=== PATIENT | male | born 1965 | race African-American/Black ===

== ENCOUNTER 2017-09-14 12:20 | Inpatient (IN) | payer OTHER ==
[2017-09-14 14:45] VITALS: BMI 31.2
--- NOTE | 2017-09-14 17:10 | HP ---
Admission ROS [facility] Chief Complaint: Patient presents for cocaine/PCP Rehab. Allergies/Adverse Reactions: Allergies Allergy/AdvReac Type Severity Reaction Status Date / Time No Known Allergies Allergy Verified 09/14/17 16:20 History of Present Illness: Patient presents for Rehab services for cocaine and PCP use. Was receiving treatment at [facility] and relapsed on cocaine/PCP last Thursday09/11/17. States he received inpatient rehab at [facility] years ago. Has PMH of Depression and insomnia. Exam Limitations: No Limitations - Ebola screening Have you traveled outside of the country in the last 21 days: No Have you had contact with anyone from an Ebola affected area: No Have you been sick,other than usual withdrawal symptoms: No Do you have a fever: No - Review of Systems Constitutional: No Symptoms Reported EENT: reports: Blurred Vision Respiratory: reports: No Symptoms reported Cardiac: reports: No Symptoms Reported GI: reports: Constipated : reports: No Symptoms Reported Musculoskeletal: reports: Back Pain, Muscle Pain Integumentary: reports: No Symptoms Reported Neuro: reports: No Symptoms reported Endocrine: reports: No Symptoms Reported Hematology: reports: No Symptoms Reported Psychiatric: reports: Orientated x3, Anxious, Depressed Patient History - Patient Medical History Hx Anemia: No Hx Asthma: No Hx Chronic Obstructive Pulmonary Disease (COPD): No Hx Cancer: No Hx Cardiac Disorders: No Hx Congestive Heart Failure: No Hx Hypertension: No Hx Hypercholesterolemia: No Hx Pacemaker: No HX Cerebrovascular Accident: No Hx Seizures: No Hx Dementia: No Hx Diabetes: No Hx Gastrointestinal Disorders: No Hx Liver Disease: No Hx Genitourinary Disorders: No Hx Sexually Transmitted Disorders: No Hx Renal Disease (ESRD): No Hx Thyroid Disease: No Hx Human Immunodeficiency Virus (HIV): No Hx Hepatitis C: No Hx Depression: Yes (Has history of depression, anxiety) Hx Suicide Attempt: No (Pt denies SI, suicide attempt) Hx Bipolar Disorder: No Hx Schizophrenia: No - Patient Surgical History Past Surgical History: No Hx Neurologic Surgery: No Hx Cataract Extraction: No Hx Cardiac Surgery: No Hx Lung Surgery: No Hx Breast Surgery: No Hx Breast Biopsy: No Hx Abdominal Surgery: No Hx Appendectomy: No Hx Cholecystectomy: No Hx Genitourinary Surgery: No Hx Orthopedic Surgery: No Hx Hysterectomy: No Anesthesia Reaction: No - PPD History Previous Implant?: Yes Documented Results: Negative w/o proof Implanted On Prior [facility] Admission?: No PPD to be Administered?: Yes - Smoking Cessation Smoking history: Current every day smoker Have you smoked in the past 12 months: Yes Hx Chewing Tobacco Use: No Initiated information on smoking cessation: Yes 'Breaking Loose' booklet given: 09/14/17 - Substances Abused Cocaine Route: Inhalation Frequency: 1-2 times per week Age of first use: 20 Date of Last Use: 09/11/17 Family Disease History - Family Disease History Family Disease History: Diabetes: Mother (Alive), Other: Father (Heroin abuse, , AIDS) Admission Physical Exam [facility] - Vital Signs Vital Signs: Vital Signs - 24 hr 09/14/17 14:41 Temperature 96.7 F L Pulse Rate 70 Respiratory 20 Rate Blood Pressure 143/73 - Physical General Appearance: Yes: Appropriately Dressed, Sweating, Anxious HEENTM: Yes: EOMI, Hearing grossly Normal, Normocephalic, NAVID Respiratory: Yes: Within Normal Limits, Chest Non-Tender, Lungs Clear, Normal Breath Sounds, No Respiratory Distress Neck: Yes: Within Normal Limits, No masses,lesions,Nodules, Supple Breast: Yes: Breast Exam Deferred Cardiology: Yes: Within Normal Limits, Regular Rhythm, Regular Rate, S1, S2 Abdominal: Yes: Normal Bowel Sounds, Non Tender, Soft Genitourinary: Yes: Within Normal Limits Back: Yes: Muscle Spasm Musculoskeletal: Yes: full range of Motion, Gait Steady, Back pain, Muscle Pain Extremities: Yes: Within Normal Limits, Normal Range of Motion, Non-Tender Neurological: Yes: Within Normal Limits, Fully Oriented, Alert Integumentary: Yes: Within Normal Limits, Normal Color, Warm, Moist - Diagnostic (1) Cocaine dependence Current Visit: Yes Status: Acute (2) Nicotine dependence Current Visit: Yes Status: Acute (3) PCP dependence Current Visit: Yes Status: Acute (4) Depressed mood Current Visit: Yes Status: Acute (5) Elevated blood pressure reading in office with diagnosis of hypertension Current Visit: Yes Status: Acute BHS Breath Alcohol Content Breath Alcohol Content: 0 Urine Drug Screen - Results Drug Screen Negative: No Urine Drug Screen Results: MANPREET-Cocaine, PCP-Phencyclidine Inpatient Rehab Admission - Initial Determination Are CD services needed?: Yes Free of communicable disease: Yes Not in need of hospitalization: Yes - Rehab Admission Criteria Previous failed treatment: Yes Poor recovery environment: Yes Comorbidities: Yes Lacks judgement: Yes Patient is meeting Inpatient Rehab admission criteria:: Yes
[2017-09-14] MEDS ORDERED: ACETAMINOPHEN 325 MG TABLET (FP) PO PRN (17:30)
[2017-09-14] MEDS ORDERED: guaiFENesin/D-METHORPHAN HB 10 ML UNIT-DOSE CUPS PO PRN (17:30)
[2017-09-14] MEDS ORDERED: NICOTINE POLACRILEX 2 MG GUM BC PRN (17:30)
[2017-09-14] MEDS ORDERED: MAGNESIUM CITRATE 300 ML BOTTLE PO PRN (17:30)
[2017-09-14] MEDS ORDERED: MAG HYDROX/AL HYDROX/SIMETH 30 ML UNIT-DOSE CUP PO PRN (17:30)
[2017-09-14] MEDS ORDERED: MAGNESIUM HYDROX 2400MG/30ML ORAL SUSPENSION 30 ML CUP PO PRN (17:30)
[2017-09-14] MEDS ORDERED: IBUPROFEN 400 MG TABLET (FP) PO PRN (17:30)
[2017-09-14] MEDS ORDERED: P-EPHED 60MG/TRIPROLIDI 2.5MG TABLET PO PRN (17:30)
[2017-09-14] MEDS ORDERED: hydrOXYzine PAMOATE 50 MG CAPSULE (FP) PO PRN (17:30)
[2017-09-14] MEDS ORDERED: MENTHOL/PHENOL 1 EACH UD MM PRN (17:30)
[2017-09-14] MEDS ORDERED: LOPERAMIDE HCL 2 MG CAPSULE PO PRN (17:30)
[2017-09-14] MEDS ORDERED: TUBERCULIN PPD 5 TU/0.1ML VIAL ID ONE (20:22)
--- NOTE | 2017-09-14 20:22 | PN ---
[facility] Progress Note Note: Psychiatry Attending's magnetic resonance imaging coordinator's note : Called to enter orders for zoloft and seroquel. New admission : Herman Carrion 52 y/o male from [facility]. Diagnosis : Cocaine/Phencyclidine Dependence Major Depressive Disorder Chart reviewed.Medications reconciled. Pharmacy claims of 08/21/17 + 09/08/17 : seen. At [facility] # [id number].Confirmed doses of both medications. Spoke to patient via telephone. Side effects/benefits discussed. Ordered : seroquel 100 mg po hs zoloft 50 mg po daily. Patient agrees.
[2017-09-14] MEDS: THIAMINE HCL 100 MG TABLET (FP) PO SCH (21:26)
[2017-09-14] MEDS: QUEtiapine FUMARATE 100 MG TABLET (FP) PO SCH (21:26)
[2017-09-14] MEDS ORDERED: MELATONIN 5 MG TABLETS PO PRN (22:00)
[2017-09-15 02:02] LABS: URINE APPEARANCE SLCLOUDY; URINE BILIRUBIN NEGATIVE (<2.0 mg/dL); URINE BLOOD NEGATIVE (NEGATIVE); URINE COLOR AMBER; URINE GLUCOSE (UA) NEGATIVE (NEGATIVE); URINE KETONE NEGATIVE (NEGATIVE); URINE LEUK ESTERASE NEGATIVE (NEGATIVE); URINE NITRITE NEGATIVE (NEGATIVE); URINE PROTEIN NEGATIVE (NEGATIVE); URINE UROBILINOGEN 4.0 E.U/dl mg/dL (0.2-1.0)
[2017-09-15] MEDS: PRENATAL VITAMINS W/ FOLIC ACID TABLET (FP) PO SCH (10:02)
[2017-09-15] MEDS: SERTRALINE HCL 50 MG TABLET (FP) PO SCH (10:02)
[2017-09-15] MEDS: NICOTINE 21 MG/24 HOURS TOPICAL PATCH TD SCH (10:02)
--- NOTE | 2017-09-15 14:22 | HP ---
Psychiatrist Admission - Data Date of interview: 09/15/17 Admission source: [facility] Identifying data: This is the second 5N inpatient rehabilitation admission for this 52 year old single faher of 5, unemployed and domiciled. Medical History: Hypertension, smokes 5-7 cigarettes a day. Psychiatric History: Patient reports history of depressionand anxiety, reports has been in treatment since the loss of his 24 year old daughter. He is under the care of [facility] [place], states sees the psychiatrist and currently on Seroquel 100 mg po hs and Zoloft 50 mg po daily, reports no history of psychiatric hospitalizations. Physical/Sexual Abuse/Trauma History: Patient denies history of sexual, physical and verbal abuse. Vital Signs: Vital Signs - 24 hr 09/14/17 09/15/17 09/15/17 14:41 01:29 03:30 Temperature 96.7 F L Pulse Rate 70 Respiratory 20 18 18 Rate Blood Pressure 143/73 09/15/17 06:43 Temperature 98.6 F Pulse Rate 76 Respiratory 17 Rate Blood Pressure 148/83 Allergies/Adverse Reactions: Allergies Allergy/AdvReac Type Severity Reaction Status Date / Time No Known Allergies Allergy Verified 09/14/17 16:20 Date of last physical exam: 09/14/17 Concur with the findings of this exam: Yes - Substance Abuse/Tx History Hx Alcohol Use: No Hx Substance Use: Yes (PCP on weekends) Substance Use Type: Cocaine (on weekends) Hx Substance Use Treatment: Yes ([facility], 5.) Mental Status Exam - Mental Status Exam Alert and Oriented to: Time, Place, Person Cognitive Function: Good Patient Appearance: Well Groomed Mood: Depressed, Sad, Anxious Affect: Appropriate, Mood Congruent, Constricted Patient Behavior: Cooperative Speech Pattern: Clear, Appropriate Voice Loudness: Normal Thought Process: Intact, Goal Oriented Thought Disorder: Not Present Hallucinations: Denies Suicidal Ideation: Denies Homicidal Ideation: Denies Insight/Judgement: Fair Sleep: Fair Appetite: Fair Muscle strength/Tone: Normal Gait/Station: Normal Psychiatric Findings - Problem List ([place] 1, 2,3) (1) MDD (major depressive disorder) Current Visit: Yes Status: Acute (2) Cocaine dependence Current Visit: Yes Status: Acute (3) Nicotine dependence Current Visit: Yes Status: Acute (4) PCP dependence Current Visit: Yes Status: Acute - Initial Treatment Plan Initial Treatment Plan: will continue Seroquel and Zoloft, monitor progress as needed.
--- NOTE | 2017-09-15 16:44 | EKG ---
Test Reason : Blood Pressure : / mmHG Vent. Rate : 073 BPM Atrial Rate : 073 BPM P-R Int : 140 ms QRS Dur : 090 ms QT Int : 392 ms P-R-T Axes : 063 043 -38 degrees QTc Int : 431 ms SINUS RHYTHM WITH PREMATURE ATRIAL COMPLEXES T WAVE ABNORMALITY, CONSIDER INFEROLATERAL ISCHEMIA ABNORMAL ECG WHEN COMPARED WITH ECG OF 14-SEP-2017 22:20, PREMATURE ATRIAL COMPLEXES ARE NOW PRESENT Confirmed by MD Rosemarie, Kelechi ([id number]) on 09/15/2017 4:44:23 PM Referred By: Confirmed By:Kelechi Houston MD
--- NOTE | 2017-09-15 16:46 | EKG ---
Test Reason : Blood Pressure : / mmHG Vent. Rate : 074 BPM Atrial Rate : 074 BPM P-R Int : 142 ms QRS Dur : 092 ms QT Int : 402 ms P-R-T Axes : 072 057 -47 degrees QTc Int : 446 ms NORMAL SINUS RHYTHM T WAVE ABNORMALITY, CONSIDER INFEROLATERAL ISCHEMIA ABNORMAL ECG NO PREVIOUS ECGS AVAILABLE Confirmed by MD Houston Edward ([id number]) on 09/15/2017 4:46:31 PM Referred By: Confirmed By:Kelechi Houston MD
[2017-09-15 17:00] LABS: HEMATOCRIT 35.6 % (35.4-49); HEMOGLOBIN 12.5 GM/dL (11.7-16.9); MCH 30.3 pg (25.7-33.7); MCHC 35.2 g/dl (32.0-35.9); MEAN CELL VOLUME 86.1 fl (80-96); MEAN PLT VOLUME 8.6 fl (7.5-11.1); PLATELET COUNT 233 K/MM3 (134-434); RBC 4.14 M/mm3 (4.00-5.60); RDW 19.6 % (11.9-15.9); WHITE BLOOD COUNT 8.1 K/mm3 (4.0-10.0)
[2017-09-15 17:05] LABS: ALBUMIN 3.2 g/dl (3.4-5.0); ANION GAP 10 (8-16); BLOOD UREA NITROGEN 13 mg/dL (7-18); CALCIUM 8.3 mg/dL (8.5-10.1); CHLORIDE 109 mmol/L (98-107); CO2 28 mmol/L (21-32); CREATININE 1.3 mg/dL (0.7-1.3); GLUCOSE,RANDOM 138 mg/dL (74-106); POTASSIUM 3.5 mmol/L (3.5-5.1); SGOT/AST 30 U/L (15-37); SGPT/ALT 37 U/L (12-78); SODIUM 147 mmol/L (136-145); TOT PROT 5.9 g/dl (6.4-8.2)
[2017-09-15 17:06] LABS: ALK PHOS 71 U/L (45-117)
[2017-09-15] MEDS: THIAMINE HCL 100 MG TABLET (FP) PO SCH (21:13)
[2017-09-15] MEDS: QUEtiapine FUMARATE 100 MG TABLET (FP) PO SCH (21:13)
[2017-09-16] MEDS: PRENATAL VITAMINS W/ FOLIC ACID TABLET (FP) PO SCH (10:00)
[2017-09-16] MEDS: SERTRALINE HCL 50 MG TABLET (FP) PO SCH (10:01)
[2017-09-16] MEDS: NICOTINE 21 MG/24 HOURS TOPICAL PATCH TD SCH (10:01)
[2017-09-16] MEDS: THIAMINE HCL 100 MG TABLET (FP) PO SCH (21:13)
[2017-09-16] MEDS: QUEtiapine FUMARATE 100 MG TABLET (FP) PO SCH (21:13)
[2017-09-17] MEDS ORDERED: DOCUSATE SODIUM 100 MG CAPSULE (FP) PO PRN (09:14)
--- NOTE | 2017-09-17 09:18 | PN ---
[facility] Progress Note Note: Patient c/o constipation Vital Signs Temperature 97.3 F L 09/17/17 07:17 Pulse Rate 64 09/17/17 07:17 Respiratory Rate 18 09/17/17 07:17 Blood Pressure 135/98 09/17/17 07:17 O2 Sat by Pulse Oximetry (%) Laboratory Tests 09/14/17 09/15/17 09/15/17 22:00 08:30 08:30 WBC 8.1 RBC 4.14 Hgb 12.5 Hct 35.6 MCV 86.1 MCH 30.3 MCHC 35.2 RDW 19.6 H Plt Count 233 MPV 8.6 Sodium 147 H Potassium 3.5 Chloride 109 H Carbon Dioxide 28 Anion Gap 10 BUN 13 Creatinine 1.3 Creat Clearance w eGFR 57.97 POC Glucometer Random Glucose 138 H Calcium 8.3 L Total Bilirubin 1.0 AST 30 ALT 37 Alkaline Phosphatase 71 Total Protein 5.9 L Albumin 3.2 L Urine Color Radha Urine Appearance Slcloudy Urine pH 5.0 Ur Specific Bath 1.029 Urine Protein Negative Urine Glucose (UA) Negative Urine Ketones Negative Urine Blood Negative Urine Nitrite Negative Urine Bilirubin Negative Urine Urobilinogen 4.0 e.u/dl Ur Leukocyte Esterase Negative RPR Titer 09/15/17 09/17/17 08:30 06:33 WBC RBC Hgb Hct MCV MCH MCHC RDW Plt Count MPV Sodium Potassium Chloride Carbon Dioxide Anion Gap BUN Creatinine Creat Clearance w eGFR POC Glucometer 102 Random Glucose Calcium Total Bilirubin AST ALT Alkaline Phosphatase Total Protein Albumin Urine Color Urine Appearance Urine pH Ur Specific Bath Urine Protein Urine Glucose (UA) Urine Ketones Urine Blood Urine Nitrite Urine Bilirubin Urine Urobilinogen Ur Leukocyte Esterase RPR Titer Nonreactive Subj: patient c/o constipation and hard stools. Denies fever, N/V/D. Obj: Gen: alert and oriented x 3. In NAD. GI: soft, NT, no distenstion. Ext: Full ROM, no deformities or edema noted A/P Constipation Increase oral fluids Add colace 100mg BID Continue to monitor clinically
[2017-09-17] MEDS: PRENATAL VITAMINS W/ FOLIC ACID TABLET (FP) PO SCH (10:01)
[2017-09-17] MEDS: SERTRALINE HCL 50 MG TABLET (FP) PO SCH (10:01)
[2017-09-17] MEDS: NICOTINE 21 MG/24 HOURS TOPICAL PATCH TD SCH (10:01)
[2017-09-17] MEDS: THIAMINE HCL 100 MG TABLET (FP) PO SCH (21:40)
[2017-09-17] MEDS: QUEtiapine FUMARATE 100 MG TABLET (FP) PO SCH (21:40)
[2017-09-18] MEDS: NICOTINE 21 MG/24 HOURS TOPICAL PATCH TD SCH (09:42)
[2017-09-18] MEDS: PRENATAL VITAMINS W/ FOLIC ACID TABLET (FP) PO SCH (09:42)
[2017-09-18] MEDS: SERTRALINE HCL 50 MG TABLET (FP) PO SCH (09:42)
[2017-09-18] MEDS: QUEtiapine FUMARATE 100 MG TABLET (FP) PO SCH (21:10)
[2017-09-18] MEDS: THIAMINE HCL 100 MG TABLET (FP) PO SCH (21:10)
[2017-09-19] MEDS: PRENATAL VITAMINS W/ FOLIC ACID TABLET (FP) PO SCH (10:08)
[2017-09-19] MEDS: NICOTINE 21 MG/24 HOURS TOPICAL PATCH TD SCH (10:08)
[2017-09-19] MEDS: SERTRALINE HCL 50 MG TABLET (FP) PO SCH (10:08)
[2017-09-19] MEDS: THIAMINE HCL 100 MG TABLET (FP) PO SCH (21:21)
[2017-09-19] MEDS: QUEtiapine FUMARATE 100 MG TABLET (FP) PO SCH (21:21)
[2017-09-20] MEDS: SERTRALINE HCL 50 MG TABLET (FP) PO SCH (10:18)
[2017-09-20] MEDS: PRENATAL VITAMINS W/ FOLIC ACID TABLET (FP) PO SCH (10:19)
[2017-09-20] MEDS: NICOTINE 21 MG/24 HOURS TOPICAL PATCH TD SCH (10:19)
[2017-09-20] MEDS: QUEtiapine FUMARATE 100 MG TABLET (FP) PO SCH (21:10)
[2017-09-20] MEDS: THIAMINE HCL 100 MG TABLET (FP) PO SCH (21:10)
[2017-09-21] MEDS: PRENATAL VITAMINS W/ FOLIC ACID TABLET (FP) PO SCH (10:04)
[2017-09-21] MEDS: NICOTINE 21 MG/24 HOURS TOPICAL PATCH TD SCH (10:04)
[2017-09-21] MEDS: SERTRALINE HCL 50 MG TABLET (FP) PO SCH (10:04)
[2017-09-21] MEDS: QUEtiapine FUMARATE 100 MG TABLET (FP) PO SCH (21:29)
[2017-09-21] MEDS: THIAMINE HCL 100 MG TABLET (FP) PO SCH (21:29)
[2017-09-22] MEDS: NICOTINE 21 MG/24 HOURS TOPICAL PATCH TD SCH (09:57)
[2017-09-22] MEDS: PRENATAL VITAMINS W/ FOLIC ACID TABLET (FP) PO SCH (09:57)
[2017-09-22] MEDS: SERTRALINE HCL 50 MG TABLET (FP) PO SCH (09:57)
[2017-09-22] MEDS: QUEtiapine FUMARATE 100 MG TABLET (FP) PO SCH (21:13)
[2017-09-22] MEDS: THIAMINE HCL 100 MG TABLET (FP) PO SCH (21:13)
[2017-09-23] MEDS: PRENATAL VITAMINS W/ FOLIC ACID TABLET (FP) PO SCH (10:05)
[2017-09-23] MEDS: SERTRALINE HCL 50 MG TABLET (FP) PO SCH (10:05)
[2017-09-23] MEDS: NICOTINE 21 MG/24 HOURS TOPICAL PATCH TD SCH (10:05)
[2017-09-23] MEDS: QUEtiapine FUMARATE 100 MG TABLET (FP) PO SCH (21:20)
[2017-09-23] MEDS: THIAMINE HCL 100 MG TABLET (FP) PO SCH (21:20)
[2017-09-24] MEDS: PRENATAL VITAMINS W/ FOLIC ACID TABLET (FP) PO SCH (09:58)
[2017-09-24] MEDS: SERTRALINE HCL 50 MG TABLET (FP) PO SCH (09:58)
[2017-09-24] MEDS: NICOTINE 21 MG/24 HOURS TOPICAL PATCH TD SCH (09:58)
[2017-09-24] MEDS: THIAMINE HCL 100 MG TABLET (FP) PO SCH (21:22)
[2017-09-24] MEDS: QUEtiapine FUMARATE 100 MG TABLET (FP) PO SCH (21:22)
[2017-09-25] MEDS: PRENATAL VITAMINS W/ FOLIC ACID TABLET (FP) PO SCH (10:18)
[2017-09-25] MEDS: NICOTINE 21 MG/24 HOURS TOPICAL PATCH TD SCH (10:18)
[2017-09-25] MEDS: SERTRALINE HCL 50 MG TABLET (FP) PO SCH (10:18)
[2017-09-25] MEDS: QUEtiapine FUMARATE 100 MG TABLET (FP) PO SCH (21:13)
[2017-09-25] MEDS: THIAMINE HCL 100 MG TABLET (FP) PO SCH (21:13)
[2017-09-26] MEDS: PRENATAL VITAMINS W/ FOLIC ACID TABLET (FP) PO SCH (09:43)
[2017-09-26] MEDS: SERTRALINE HCL 50 MG TABLET (FP) PO SCH (09:43)
[2017-09-26] MEDS: NICOTINE 21 MG/24 HOURS TOPICAL PATCH TD SCH (09:44)
[2017-09-26] MEDS: THIAMINE HCL 100 MG TABLET (FP) PO SCH (21:15)
[2017-09-26] MEDS: QUEtiapine FUMARATE 100 MG TABLET (FP) PO SCH (21:15)
[2017-09-27] MEDS: NICOTINE 21 MG/24 HOURS TOPICAL PATCH TD SCH (09:40)
[2017-09-27] MEDS: PRENATAL VITAMINS W/ FOLIC ACID TABLET (FP) PO SCH (09:40)
[2017-09-27] MEDS: SERTRALINE HCL 50 MG TABLET (FP) PO SCH (09:40)
--- NOTE | 2017-09-27 15:17 | PN ---
Psychiatric Progress Note Vital Signs: Vital Signs Period Temp Pulse Resp BP Sys/Lo Pulse Ox Last 24 Hr 97.9 F 64 18-18 133/83 Date of Session: 09/27/17 Chief Complaint:: Discharge Note HPI: Patient addressing Cocaine and Phencyclidine Dependence comorbid with Nicotine Dependence and MDD Current Medications: Active Medications Generic Name Dose Route Start Last Admin Trade Name Freq PRN Reason Stop Dose Admin Acetaminophen 650 mg 09/14/17 17:30 Tylenol - PO Q4H PRN FEVER Al Hydroxide/Mg Hydroxide 30 ml 09/14/17 17:30 Mylanta Oral Suspension - PO Q6H PRN DYSPEPSIA Docusate Sodium 100 mg 09/17/17 09:14 09/26/17 09:43 Colace - PO 100 mg BID PRN Administration CONSTIPATION Eucalyptus/Menthol/Phenol/Sorbitol 1 each 09/14/17 17:30 Cepastat Lozenge - MM Q4H PRN SORE THROAT Guaifenesin 10 ml 09/14/17 17:30 Robitussin Dm - PO Q6H PRN COUGH Hydroxyzine Pamoate 50 mg 09/14/17 17:30 Vistaril - PO Q4H PRN AGITATION Ibuprofen 400 mg 09/14/17 17:30 Motrin - PO Q6H PRN Pain level 4-6 Loperamide HCl 4 mg 09/14/17 17:30 Imodium - PO Q6H PRN DIARRHEA Magnesium Citrate 300 ml 09/14/17 17:30 Citroma - PO Q48H PRN CONSTIPATION Magnesium Hydroxide 30 ml 09/14/17 17:30 Milk Of Magnesia - PO DAILY PRN CONSTIPATION Melatonin 5 mg 09/14/17 22:00 Melatonin PO HS PRN INSOMNIA Nicotine 21 mg 09/15/17 10:00 09/27/17 09:40 Nicoderm Patch - TD 21 mg DAILY CALEB Administration Nicotine Polacrilex 2 mg 09/14/17 17:30 Nicorette Gum - BC Q2H PRN NICOTINE REPLACEMENT RX Multivit/Folic Acid/Iron 1 tab 09/15/17 10:00 09/27/17 09:40 Vitamins (Sjr) - PO 1 tab DAILY CALEB Administration Pseudoephedrine/Triprolidine 1 combo 09/14/17 17:30 Actifed - PO TID PRN NASAL CONGESTION Quetiapine Fumarate 100 mg 09/14/17 22:00 09/26/17 21:15 Seroquel - PO 100 mg HS CALEB Administration Sertraline HCl 50 mg 09/15/17 10:00 09/27/17 09:40 Zoloft - PO 50 mg DAILY CALEB Administration Thiamine HCl 100 mg 09/14/17 22:00 09/26/17 21:15 Vitamin B1 - PO 100 mg HS CALEB Administration Current Side Effect: No Lab tests ordered: Yes Lab tests reviewed: Yes Provider note:: Patient will complete this program on 09/28/17. He has met his treatment goals and will continue to address his issues in outpatient treatment at [facility]. Told travel writer that from his participation in this program, he has learned to believe in himself, his high power and to make meetings as well as having a sponsor. He responded well to Seroquel 100 mg po HS and Zoloft 50 mg po daily. Scripts for 30 days supply of these medications will be electronically transmitted to [facility] pharmacy at [address] [place] [address]. He is stable for discharge on 09/28/17 Total face to face time:: 35 Psychiatric Treatment Plan - Problem List (1) Cocaine dependence Current Visit: Yes (2) Phencyclidine dependence Current Visit: Yes (3) Phencyclidine dependence Current Visit: Yes (4) Nicotine dependence Current Visit: Yes (5) MDD (major depressive disorder) Current Visit: Yes Initial treatment plan: Patient will be discharged tomorrow and referred to [facility] for outpatient treatment
[2017-09-27] MEDS: THIAMINE HCL 100 MG TABLET (FP) PO SCH (21:38)
[2017-09-27] MEDS: QUEtiapine FUMARATE 100 MG TABLET (FP) PO SCH (21:38)
[2017-09-28 07:03] VITALS: BP 140/88; PULSE 77; TEMP 98
--- NOTE | 2017-09-28 08:16 | HP ---
Psychiatrist Admission - Data Date of interview: 09/28/17 Admission source: Discharge Note Vital Signs: Vital Signs - 24 hr 09/28/17 09/28/17 09/28/17 00:30 03:30 07:03 Temperature 98.0 F Pulse Rate 77 Respiratory 18 18 18 Rate Blood Pressure 140/88 Allergies/Adverse Reactions: Allergies Allergy/AdvReac Type Severity Reaction Status Date / Time No Known Allergies Allergy Verified 09/14/17 16:20 Psychiatric Findings - Problem List ([place] 1, 2,3) (1) Cocaine dependence Current Visit: Yes Status: Acute (2) Phencyclidine dependence Current Visit: Yes Status: Acute (3) Phencyclidine dependence Current Visit: Yes Status: Acute (4) Nicotine dependence Current Visit: Yes Status: Acute (5) MDD (major depressive disorder) Current Visit: Yes Status: Acute
--- NOTE | 2017-09-28 08:16 | PN ---
Psychiatric Progress Note Vital Signs: Vital Signs Period Temp Pulse Resp BP Sys/Lo Pulse Ox Last 24 Hr 98.0 F 77 18-18 140/88 Date of Session: 09/28/17 Chief Complaint:: Discharge Note HPI: Patient addressing Cocaine and Phencyclidine Dependence comorbid with Nicotine Dependence and MDD Current Medications: Active Medications Generic Name Dose Route Start Last Admin Trade Name Freq PRN Reason Stop Dose Admin Acetaminophen 650 mg 09/14/17 17:30 Tylenol - PO Q4H PRN FEVER Al Hydroxide/Mg Hydroxide 30 ml 09/14/17 17:30 Mylanta Oral Suspension - PO Q6H PRN DYSPEPSIA Docusate Sodium 100 mg 09/17/17 09:14 09/26/17 09:43 Colace - PO 100 mg BID PRN Administration CONSTIPATION Eucalyptus/Menthol/Phenol/Sorbitol 1 each 09/14/17 17:30 Cepastat Lozenge - MM Q4H PRN SORE THROAT Guaifenesin 10 ml 09/14/17 17:30 Robitussin Dm - PO Q6H PRN COUGH Hydroxyzine Pamoate 50 mg 09/14/17 17:30 Vistaril - PO Q4H PRN AGITATION Ibuprofen 400 mg 09/14/17 17:30 Motrin - PO Q6H PRN Pain level 4-6 Loperamide HCl 4 mg 09/14/17 17:30 Imodium - PO Q6H PRN DIARRHEA Magnesium Citrate 300 ml 09/14/17 17:30 Citroma - PO Q48H PRN CONSTIPATION Magnesium Hydroxide 30 ml 09/14/17 17:30 Milk Of Magnesia - PO DAILY PRN CONSTIPATION Melatonin 5 mg 09/14/17 22:00 Melatonin PO HS PRN INSOMNIA Nicotine 21 mg 09/15/17 10:00 09/27/17 09:40 Nicoderm Patch - TD 21 mg DAILY CALEB Administration Nicotine Polacrilex 2 mg 09/14/17 17:30 Nicorette Gum - BC Q2H PRN NICOTINE REPLACEMENT RX Multivit/Folic Acid/Iron 1 tab 09/15/17 10:00 09/27/17 09:40 Vitamins (Sjr) - PO 1 tab DAILY CALEB Administration Pseudoephedrine/Triprolidine 1 combo 09/14/17 17:30 Actifed - PO TID PRN NASAL CONGESTION Quetiapine Fumarate 100 mg 09/14/17 22:00 09/27/17 21:38 Seroquel - PO 100 mg HS CALEB Administration Sertraline HCl 50 mg 09/15/17 10:00 09/27/17 09:40 Zoloft - PO 50 mg DAILY CALEB Administration Thiamine HCl 100 mg 09/14/17 22:00 09/27/17 21:38 Vitamin B1 - PO 100 mg HS CALEB Administration Current Side Effect: No Lab tests ordered: Yes Lab tests reviewed: Yes Provider note:: Patient has completed this program today. He has met his treatment goals and will continue to address his issues in outpatient treatment at [facility]. Told typewriter aligner that from his participation in this program, he has learned to believe in himself, his high power and to make meetings as well as having a sponsor. He responded well to Seroquel 100 mg po HS and Zoloft 50 mg po daily. Scripts for 30 days supply of these medications will be electronically transmitted to [facility] pharmacy at [address] [place] [address]. He is stable for discharge today Total face to face time:: 35 Mental Status Exam - Mental Status Exam Alert and Oriented to: Time, Place, Person Cognitive Function: Fair Patient Appearance: Well Groomed Mood: Hopeful, Euthymic Affect: Appropriate Patient Behavior: Cooperative Speech Pattern: Clear Voice Loudness: Normal Thought Process: Intact, Goal Oriented Thought Disorder: Not Present Hallucinations: Denies Suicidal Ideation: Denies Homicidal Ideation: Denies Insight/Judgement: Fair Sleep: Fair Appetite: Good Muscle strength/Tone: Normal Gait/Station: Normal Psychiatric Treatment Plan - Problem List (1) Cocaine dependence Current Visit: Yes (2) Phencyclidine dependence Current Visit: Yes (3) Phencyclidine dependence Current Visit: Yes (4) Nicotine dependence Current Visit: Yes (5) MDD (major depressive disorder) Current Visit: Yes Initial treatment plan: Patient will be discharged tomorrow and referred to [facility] for outpatient treatment
[2017-09-28] MEDS: NICOTINE 21 MG/24 HOURS TOPICAL PATCH TD SCH (10:01)
[2017-09-28] MEDS: SERTRALINE HCL 50 MG TABLET (FP) PO SCH (10:01)
[2017-09-28] MEDS: PRENATAL VITAMINS W/ FOLIC ACID TABLET (FP) PO SCH (10:01)
== END 2017-09-28 11:00 | disposition home or self-care (01) | DRG 772 ==
LOC: YASAS 12:20 → Y5N 16:50
PROVIDERS: ADMIT Psychiatry & Neurology Psychiatry; ATTEND Psychiatry & Neurology Psychiatry
PROC: HZ42ZZZ Group Counseling for Substance Abuse Treatment, Cognitive-Behavioral (ICD-10-PCS; principal; 2017-09-14)
DX: F14.20 Cocaine dependence, uncomplicated (principal); F16.20 Hallucinogen dependence, uncomplicated; F17.210 Nicotine dependence, cigarettes, uncomplicated; F33.9 Major depressive disorder, recurrent, unspecified; F32.9 Major depressive disorder, single episode, unspecified; F41.9 Anxiety disorder, unspecified; I10 Essential (primary) hypertension
CPT/HCPCS: 36415; 80053; 81003; 82962; 85027; 86593; 93005; 93010

== ENCOUNTER 2020-08-07 13:22 | Inpatient (IN) | payer OTHER ==
[2020-08-07 15:38] VITALS: BMI 30.5
[2020-08-07] MEDS ORDERED: NALOXONE HCL 0.4 MG/ML VIAL IM PRN (16:36)
[2020-08-07] MEDS ORDERED: METHADONE HCL 10 MG TABLET (FOR DETOX USE ONLY) PO ONE (16:36)
[2020-08-07] MEDS ORDERED: MAGNESIUM HYDROX 2400MG/30ML ORAL SUSPENSION 30 ML CUP PO PRN (16:36)
[2020-08-07] MEDS ORDERED: ONDANSETRON *ODT* 4 MG TABLET SL PRN (16:36)
[2020-08-07] MEDS ORDERED: ACETAMINOPHEN 325 MG TABLET (FP) PO PRN (16:36)
[2020-08-07] MEDS ORDERED: MAGNESIUM CITRATE 300 ML BOTTLE PO PRN (16:36)
[2020-08-07] MEDS ORDERED: MENTHOL/PHENOL 1 EACH UD MM PRN (16:36)
[2020-08-07] MEDS ORDERED: BISMUTH SUBSALICYLATE 524 MG/30 ML UD PO PRN (16:36)
[2020-08-07] MEDS ORDERED: METHOCARBAMOL 500 MG TABLET PO PRN (16:36)
[2020-08-07] MEDS ORDERED: MAG HYDROX/AL HYDROX/SIMETH 30 ML UNIT-DOSE CUP PO PRN (16:36)
[2020-08-07] MEDS ORDERED: IBUPROFEN 400 MG TABLET (FP) PO PRN (16:36)
[2020-08-07] MEDS ORDERED: cloNIDine HCL 0.1 MG TABLET PO PRN (16:36)
[2020-08-07] MEDS: PRENATAL VITAMINS W/ FOLIC ACID TABLET (FP) PO SCH (18:22)
[2020-08-07] MEDS: hydrOXYzine PAMOATE 25 MG CAPSULE (FP) PO SCH ×2 (18:22→22:33)
[2020-08-07] MEDS: THIAMINE HCL 100 MG TABLET (FP) PO SCH (22:33)
[2020-08-07] MEDS: MELATONIN 5 MG TABLETS PO SCH (22:33)
[2020-08-08] MEDS: hydrOXYzine PAMOATE 25 MG CAPSULE (FP) PO SCH ×2 (06:22→10:25)
[2020-08-08] MEDS ORDERED: METHADONE HCL 5 MG TABLET (FOR DETOX USE ONLY) ONE (09:07)
[2020-08-08] MEDS ORDERED: METHADONE HCL 10 MG TABLET (FOR DETOX USE ONLY) ONE (09:07)
[2020-08-08] MEDS ORDERED: METHADONE (DETOX) 20 MG, METHADONE (DETOX) 5 MG PO ONE (10:00)
[2020-08-08] MEDS: PRENATAL VITAMINS W/ FOLIC ACID TABLET (FP) PO SCH (10:25)
[2020-08-08 11:20] LABS: POTASSIUM 4.1 mmol/L (3.5-5.1)
[2020-08-08] MEDS ORDERED: hydrOXYzine PAMOATE 25 MG CAPSULE (FP) PO PRN (11:21)
[2020-08-08 11:25] LABS: HEMATOCRIT 32.7 % (35.4-49); MCH 30.3 pg (25.7-33.7); MCHC 36.7 g/dl (32.0-35.9); MEAN CELL VOLUME 82.5 fl (80-96); MEAN PLT VOLUME 8.5 fl (7.5-11.1); PLATELET COUNT 240 K/MM3 (134-434); RBC 3.97 M/mm3 (4.00-5.60); RDW 18.6 % (11.9-15.9)
[2020-08-08 11:27] LABS: ALBUMIN 3.4 g/dl (3.4-5.0); BLOOD UREA NITROGEN 11.4 mg/dL (7-18); CALCIUM 8.8 mg/dL (8.5-10.1)
[2020-08-08 11:34] LABS: BILIRUBIN,TOTAL 1.6 mg/dL (0.2-1)
[2020-08-08 11:36] LABS: TOT PROT 6.4 g/dl (6.4-8.2)
[2020-08-08 12:18] LABS: HIV INTERPRETATION NEGATIVE (NEGATIVE)
[2020-08-08] MEDS: MELATONIN 5 MG TABLETS PO SCH (21:54)
[2020-08-08] MEDS: THIAMINE HCL 100 MG TABLET (FP) PO SCH (21:54)
[2020-08-08] MEDS: MIRTAZAPINE 15 MG TABLET (FP) PO SCH (21:54)
[2020-08-09] MEDS: PRENATAL VITAMINS W/ FOLIC ACID TABLET (FP) PO SCH (09:35)
[2020-08-09] MEDS: SERTRALINE HCL 50 MG TABLET (FP) PO SCH (09:35)
[2020-08-09] MEDS ORDERED: METHADONE HCL 10 MG TABLET (FOR DETOX USE ONLY) PO ONE (10:00)
[2020-08-09] MEDS: MELATONIN 5 MG TABLETS PO SCH (22:09)
[2020-08-09] MEDS: MIRTAZAPINE 15 MG TABLET (FP) PO SCH (22:09)
[2020-08-09] MEDS: THIAMINE HCL 100 MG TABLET (FP) PO SCH (22:09)
[2020-08-10] MEDS ORDERED: METHADONE HCL 10 MG TABLET (FOR DETOX USE ONLY) ONE (09:40)
[2020-08-10] MEDS ORDERED: METHADONE HCL 5 MG TABLET (FOR DETOX USE ONLY) ONE (09:40)
[2020-08-10] MEDS ORDERED: METHADONE (DETOX) 10 MG, METHADONE (DETOX) 5 MG PO ONE (10:00)
[2020-08-10] MEDS: SERTRALINE HCL 50 MG TABLET (FP) PO SCH (10:01)
[2020-08-10] MEDS: PRENATAL VITAMINS W/ FOLIC ACID TABLET (FP) PO SCH (10:01)
[2020-08-10 10:58] LABS: POTASSIUM 4.2 mmol/L (3.5-5.1)
[2020-08-10 11:01] LABS: ALBUMIN 3.6 g/dl (3.4-5.0); BLOOD UREA NITROGEN 12.6 mg/dL (7-18)
[2020-08-10 11:04] LABS: CREATININE 1.1 mg/dL (0.55-1.3)
[2020-08-10 11:05] LABS: BILIRUBIN,TOTAL 1.8 mg/dL (0.2-1)
[2020-08-10 11:06] LABS: TOT PROT 6.6 g/dl (6.4-8.2)
[2020-08-10] MEDS: THIAMINE HCL 100 MG TABLET (FP) PO SCH (22:08)
[2020-08-10] MEDS: MELATONIN 5 MG TABLETS PO SCH (22:08)
[2020-08-10] MEDS: MIRTAZAPINE 15 MG TABLET (FP) PO SCH (22:08)
[2020-08-11] MEDS: PRENATAL VITAMINS W/ FOLIC ACID TABLET (FP) PO SCH (09:31)
[2020-08-11] MEDS: SERTRALINE HCL 50 MG TABLET (FP) PO SCH (09:31)
[2020-08-11] MEDS ORDERED: METHADONE HCL 10 MG TABLET (FOR DETOX USE ONLY) PO ONE (10:00)
[2020-08-11] MEDS: MELATONIN 5 MG TABLETS PO SCH (22:31)
[2020-08-11] MEDS: MIRTAZAPINE 15 MG TABLET (FP) PO SCH (22:32)
[2020-08-11] MEDS: THIAMINE HCL 100 MG TABLET (FP) PO SCH (22:32)
[2020-08-12] MEDS ORDERED: METHADONE HCL 5 MG TABLET (FOR DETOX USE ONLY) PO ONE (06:00)
[2020-08-12] MEDS: SERTRALINE HCL 50 MG TABLET (FP) PO SCH (10:34)
[2020-08-12] MEDS: PRENATAL VITAMINS W/ FOLIC ACID TABLET (FP) PO SCH (10:34)
[2020-08-12 14:20] VITALS: BP 132/68; PULSE 73; TEMP 96.4
== END 2020-08-12 15:55 | disposition other institution (70) | DRG 773 ==
LOC: YASAS 13:22 → Y3N 15:34
PROVIDERS: ADMIT Allergy & Immunology; ATTEND Allergy & Immunology
PROC: HZ2ZZZZ Detoxification Services for Substance Abuse Treatment (ICD-10-PCS; principal; 2020-08-07)
DX: F11.23 Opioid dependence with withdrawal (principal); F10.20 Alcohol dependence, uncomplicated; F16.20 Hallucinogen dependence, uncomplicated; F17.210 Nicotine dependence, cigarettes, uncomplicated; F19.24 Other psychoactive substance dependence with psychoactive substance-induced mood disorder; F32.9 Major depressive disorder, single episode, unspecified; G47.00 Insomnia, unspecified; I10 Essential (primary) hypertension; M54.5 Low back pain; G89.29 Other chronic pain; Z91.19 Patient's noncompliance with other medical treatment and regimen
CPT/HCPCS: 36415; 80053; 85027; 86780; 87389; 93005; 93010; C9803; J0735; U0003

== ENCOUNTER 2020-08-12 14:53 | Inpatient (IN) | payer OTHER ==
[2020-08-12] MEDS ORDERED: guaiFENesin 200 MG/10 ML 10 ML UNIT-DOSE CUPS PO PRN (15:43)
[2020-08-12] MEDS ORDERED: LOPERAMIDE HCL 2 MG CAPSULE PO PRN (15:43)
[2020-08-12] MEDS ORDERED: MAGNESIUM CITRATE 300 ML BOTTLE PO PRN (15:43)
[2020-08-12] MEDS ORDERED: MENTHOL/PHENOL 1 EACH UD MM PRN (15:43)
[2020-08-12] MEDS ORDERED: MAG HYDROX/AL HYDROX/SIMETH 30 ML UNIT-DOSE CUP PO PRN (15:43)
[2020-08-12] MEDS ORDERED: NICOTINE POLACRILEX 2 MG GUM BUC PRN (15:43)
[2020-08-12] MEDS ORDERED: MAGNESIUM HYDROX 2400MG/30ML ORAL SUSPENSION 30 ML CUP PO PRN (15:43)
[2020-08-12] MEDS ORDERED: IBUPROFEN 400 MG TABLET (FP) PO PRN (15:43)
[2020-08-12] MEDS ORDERED: ACETAMINOPHEN 325 MG TABLET (FP) PO PRN (15:43)
[2020-08-12] MEDS ORDERED: P-EPHED 60MG/TRIPROLIDI 2.5MG TABLET PO PRN (15:43)
[2020-08-12] MEDS: hydrOXYzine PAMOATE 25 MG CAPSULE (FP) PO SCH ×2 (18:47→21:37)
[2020-08-12] MEDS: THIAMINE HCL 100 MG TABLET (FP) PO SCH (21:37)
[2020-08-12] MEDS: MELATONIN 5 MG TABLETS PO SCH (21:37)
[2020-08-13] MEDS: hydrOXYzine PAMOATE 25 MG CAPSULE (FP) PO SCH ×3 (07:03→13:17)
[2020-08-13] MEDS: PRENATAL VITAMINS W/ FOLIC ACID TABLET (FP) PO SCH (09:55)
[2020-08-13] MEDS: NICOTINE 7 MG/24 HOURS TOPICAL PATCH TD SCH (09:55)
[2020-08-13] MEDS: hydrOXYzine PAMOATE 25 MG CAPSULE (FP) PO PRN (21:27)
[2020-08-13] MEDS: THIAMINE HCL 100 MG TABLET (FP) PO SCH (21:27)
[2020-08-13] MEDS: MELATONIN 5 MG TABLETS PO SCH (21:28)
[2020-08-14 06:40] VITALS: TEMP 97.7
[2020-08-14] MEDS: NICOTINE 7 MG/24 HOURS TOPICAL PATCH TD SCH (09:56)
[2020-08-14] MEDS: PRENATAL VITAMINS W/ FOLIC ACID TABLET (FP) PO SCH (09:56)
[2020-08-14] MEDS: MELATONIN 5 MG TABLETS PO SCH (21:25)
[2020-08-14] MEDS: THIAMINE HCL 100 MG TABLET (FP) PO SCH (21:25)
[2020-08-14] MEDS: hydrOXYzine PAMOATE 25 MG CAPSULE (FP) PO PRN (21:25)
[2020-08-14] MEDS ORDERED: MIRTAZAPINE 15 MG TABLET (FP) PO SCH (22:00)
[2020-08-15 06:43] VITALS: BP 130/84; PULSE 63
[2020-08-15] MEDS ORDERED: SERTRALINE HCL 50 MG TABLET (FP) PO SCH (10:00)
[2020-08-15] MEDS: PRENATAL VITAMINS W/ FOLIC ACID TABLET (FP) PO SCH (10:10)
[2020-08-15] MEDS: NICOTINE 7 MG/24 HOURS TOPICAL PATCH TD SCH (10:10)
== END 2020-08-15 11:05 | disposition left against medical advice (07) | DRG 772 ==
LOC: YASAS 14:53 → Y5N 14:54
PROVIDERS: ADMIT Allergy & Immunology; ATTEND Allergy & Immunology
PROC: HZ42ZZZ Group Counseling for Substance Abuse Treatment, Cognitive-Behavioral (ICD-10-PCS; principal; 2020-08-12)
DX: F11.20 Opioid dependence, uncomplicated (principal); F10.20 Alcohol dependence, uncomplicated; F14.20 Cocaine dependence, uncomplicated; F16.20 Hallucinogen dependence, uncomplicated; F17.210 Nicotine dependence, cigarettes, uncomplicated; F32.9 Major depressive disorder, single episode, unspecified; G47.00 Insomnia, unspecified; I10 Essential (primary) hypertension; Z56.0 Unemployment, unspecified; F91.8 Other conduct disorders; Z91.19 Patient's noncompliance with other medical treatment and regimen

== ENCOUNTER 2021-04-01 10:19 | Inpatient (IN) | payer OTHER ==
[2021-04-01 11:16] VITALS: BMI 30.7
[2021-04-01] MEDS ORDERED: MAGNESIUM HYDROX 2400MG/30ML ORAL SUSPENSION 30 ML CUP PO PRN (11:34)
[2021-04-01] MEDS ORDERED: BISMUTH SUBSALICYLATE 524 MG/30 ML PO PRN (11:34)
[2021-04-01] MEDS ORDERED: cloNIDine HCL 0.1 MG TABLET PO PRN (11:34)
[2021-04-01] MEDS ORDERED: methaDONE HCL 10 MG TABLET (FOR DETOX USE ONLY) PO ONE (11:34)
[2021-04-01] MEDS ORDERED: ACETAMINOPHEN 325 MG TABLET (FP) PO PRN ×2 (11:34)
[2021-04-01] MEDS ORDERED: IBUPROFEN 400 MG TABLET (FP) PO PRN (11:34)
[2021-04-01] MEDS ORDERED: ONDANSETRON *ODT* 4 MG TABLET SL PRN (11:34)
[2021-04-01] MEDS ORDERED: MAG HYDROX/AL HYDROX/SIMETH 30 ML UNIT-DOSE CUP PO PRN (11:34)
[2021-04-01] MEDS ORDERED: MAGNESIUM CITRATE 300 ML BOTTLE PO PRN (11:34)
[2021-04-01] MEDS ORDERED: NICOTINE 10 MG CARTRIDGE (INHALER) IH PRN (11:34)
[2021-04-01] MEDS: PRENATAL VITAMINS W/ FOLIC ACID TABLET (FP) PO SCH (13:32)
[2021-04-01 14:25] LABS: HEMOGLOBIN 13.1 GM/dL (11.7-16.9); MCH 30.1 pg (25.7-33.7); MCHC 36.4 g/dl (32.0-35.9); MEAN CELL VOLUME 82.7 fl (80-96); MEAN PLT VOLUME 7.8 fl (7.5-11.1); PLATELET COUNT 305 10^3/uL (134-434); RBC 4.35 M/mm3 (4.00-5.60); WHITE BLOOD COUNT 11.9 K/mm3 (4.0-10.0)
[2021-04-01 14:26] LABS: ALBUMIN 3.9 g/dl (3.4-5.0); CALCIUM 9.2 mg/dL (8.5-10.1)
[2021-04-01 14:30] LABS: CREATININE 1.2 mg/dL (0.55-1.3)
[2021-04-01 14:31] LABS: BILIRUBIN,TOTAL 1.7 mg/dL (0.2-1); BLOOD UREA NITROGEN 13.9 mg/dL (7-18); TOT PROT 7.4 g/dl (6.4-8.2)
[2021-04-01] MEDS: hydrOXYzine PAMOATE 25 MG CAPSULE (FP) PO SCH ×3 (15:04→22:11)
[2021-04-01 15:17] LABS: HIV INTERPRETATION NEGATIVE (NEGATIVE)
[2021-04-01] MEDS: MELATONIN 5 MG TABLETS PO SCH (22:11)
[2021-04-01] MEDS: THIAMINE HCL 100 MG TABLET (FP) PO SCH (22:12)
[2021-04-02] MEDS: hydrOXYzine PAMOATE 25 MG CAPSULE (FP) PO SCH ×5 (05:31→22:12)
[2021-04-02] MEDS ORDERED: methaDONE HCL 10 MG TABLET (FOR DETOX USE ONLY) ONE (09:52)
[2021-04-02] MEDS: amLODIPine BESYLATE 10 MG TABLET (FP) PO SCH (10:21)
[2021-04-02] MEDS: PRENATAL VITAMINS W/ FOLIC ACID TABLET (FP) PO SCH (10:21)
[2021-04-02] MEDS: SERTRALINE HCL 50 MG TABLET (FP) PO SCH (10:21)
[2021-04-02] MEDS: THIAMINE HCL 100 MG TABLET (FP) PO SCH (22:12)
[2021-04-02] MEDS: METHOCARBAMOL 500 MG TABLET PO PRN (22:12)
[2021-04-02] MEDS: MELATONIN 5 MG TABLETS PO SCH (22:12)
[2021-04-03] MEDS: hydrOXYzine PAMOATE 25 MG CAPSULE (FP) PO SCH ×5 (06:06→22:56)
[2021-04-03] MEDS ORDERED: methaDONE HCL 10 MG TABLET (FOR DETOX USE ONLY) PO ONE (10:00)
[2021-04-03] MEDS: PRENATAL VITAMINS W/ FOLIC ACID TABLET (FP) PO SCH (10:34)
[2021-04-03] MEDS: SERTRALINE HCL 50 MG TABLET (FP) PO SCH (10:34)
[2021-04-03] MEDS: amLODIPine BESYLATE 10 MG TABLET (FP) PO SCH (10:34)
[2021-04-03 11:55] LABS: HEMATOCRIT 37.6 % (35.4-49); HEMOGLOBIN 13.7 GM/dL (11.7-16.9); MCH 30.4 pg (25.7-33.7); MCHC 36.4 g/dl (32.0-35.9); MEAN CELL VOLUME 83.4 fl (80-96); MEAN PLT VOLUME 8.3 fl (7.5-11.1); PLATELET COUNT 289 10^3/uL (134-434); RBC 4.51 M/mm3 (4.00-5.60); RDW 18.4 % (11.9-15.9); WHITE BLOOD COUNT 7.7 K/mm3 (4.0-10.0)
[2021-04-03] MEDS ORDERED: P-EPHED 60MG/TRIPROLIDI 2.5MG TABLET PO PRN (13:34)
[2021-04-03] MEDS: MELATONIN 5 MG TABLETS PO SCH (22:08)
[2021-04-03] MEDS: THIAMINE HCL 100 MG TABLET (FP) PO SCH (22:08)
[2021-04-04] MEDS: hydrOXYzine PAMOATE 25 MG CAPSULE (FP) PO SCH ×6 (06:01→21:40)
[2021-04-04] MEDS ORDERED: methaDONE HCL 10 MG TABLET (FOR DETOX USE ONLY) ONE (09:45)
[2021-04-04] MEDS: METHOCARBAMOL 500 MG TABLET PO PRN (10:14)
[2021-04-04] MEDS: PRENATAL VITAMINS W/ FOLIC ACID TABLET (FP) PO SCH (10:15)
[2021-04-04] MEDS: SERTRALINE HCL 50 MG TABLET (FP) PO SCH (10:15)
[2021-04-04] MEDS: amLODIPine BESYLATE 10 MG TABLET (FP) PO SCH (10:15)
[2021-04-04] MEDS: MELATONIN 5 MG TABLETS PO SCH (21:40)
[2021-04-04] MEDS: THIAMINE HCL 100 MG TABLET (FP) PO SCH (21:40)
[2021-04-05] MEDS: hydrOXYzine PAMOATE 25 MG CAPSULE (FP) PO SCH ×5 (06:58→22:16)
[2021-04-05] MEDS ORDERED: methaDONE HCL 10 MG TABLET (FOR DETOX USE ONLY) PO ONE (10:00)
[2021-04-05] MEDS: amLODIPine BESYLATE 10 MG TABLET (FP) PO SCH (10:06)
[2021-04-05] MEDS: PRENATAL VITAMINS W/ FOLIC ACID TABLET (FP) PO SCH (10:06)
[2021-04-05] MEDS: SERTRALINE HCL 50 MG TABLET (FP) PO SCH (10:06)
[2021-04-05] MEDS: THIAMINE HCL 100 MG TABLET (FP) PO SCH (22:16)
[2021-04-05] MEDS: MELATONIN 5 MG TABLETS PO SCH (22:16)
[2021-04-05] MEDS: METHOCARBAMOL 500 MG TABLET PO PRN (22:17)
[2021-04-06] MEDS: hydrOXYzine PAMOATE 25 MG CAPSULE (FP) PO SCH ×2 (06:42→10:05)
[2021-04-06 09:55] VITALS: BP 125/84; PULSE 93; TEMP 96.8
[2021-04-06] MEDS: amLODIPine BESYLATE 10 MG TABLET (FP) PO SCH (10:05)
[2021-04-06] MEDS: PRENATAL VITAMINS W/ FOLIC ACID TABLET (FP) PO SCH (10:05)
[2021-04-06] MEDS: SERTRALINE HCL 50 MG TABLET (FP) PO SCH (10:05)
== END 2021-04-06 11:14 | disposition home or self-care (01) | DRG 773 ==
LOC: YASAS 10:19 → Y3N 11:44
PROVIDERS: ADMIT Allergy & Immunology; ATTEND Allergy & Immunology
PROC: HZ2ZZZZ Detoxification Services for Substance Abuse Treatment (ICD-10-PCS; principal; 2021-04-01)
DX: F11.23 Opioid dependence with withdrawal (principal); F10.230 Alcohol dependence with withdrawal, uncomplicated; F14.20 Cocaine dependence, uncomplicated; F16.20 Hallucinogen dependence, uncomplicated; F17.213 Nicotine dependence, cigarettes, with withdrawal; F41.9 Anxiety disorder, unspecified; F32.9 Major depressive disorder, single episode, unspecified; I10 Essential (primary) hypertension
CPT/HCPCS: 36415; 80053; 82247; 85027; 86780; 87389; 93005; 93010; C9803; J0735; U0003; U0005

== ENCOUNTER 2021-06-23 14:16 | Inpatient (IN) | payer OTHER ==
[2021-06-23] MEDS ORDERED: MAGNESIUM HYDROX 2400MG/30ML ORAL SUSPENSION 30 ML CUP PO PRN (23:00)
[2021-06-23] MEDS ORDERED: BISMUTH SUBSALICYLATE 524 MG/30 ML PO PRN (23:00)
[2021-06-23] MEDS ORDERED: IBUPROFEN 400 MG TABLET (FP) PO PRN (23:00)
[2021-06-23] MEDS ORDERED: MAGNESIUM CITRATE 300 ML BOTTLE PO PRN (23:00)
[2021-06-23] MEDS ORDERED: NICOTINE POLACRILEX 2 MG GUM BUC PRN (23:00)
[2021-06-23] MEDS ORDERED: ONDANSETRON *ODT* 4 MG TABLET SL PRN (23:00)
[2021-06-23] MEDS ORDERED: MENTHOL/PHENOL 1 EACH UD MM PRN (23:00)
[2021-06-23] MEDS ORDERED: MAG HYDROX/AL HYDROX/SIMETH 30 ML UNIT-DOSE CUP PO PRN (23:00)
[2021-06-23] MEDS ORDERED: ACETAMINOPHEN 325 MG TABLET (FP) PO PRN ×2 (23:00)
[2021-06-23 23:54] VITALS: BMI 30.9
[2021-06-24] MEDS: PRENATAL VITAMINS W/ FOLIC ACID TABLET (FP) PO SCH (10:24)
[2021-06-24] MEDS: METHOCARBAMOL 500 MG TABLET PO PRN ×2 (10:24→22:14)
[2021-06-24] MEDS: NICOTINE 14 MG/24 HOURS TOPICAL PATCH TD SCH (11:02)
[2021-06-24 12:29] LABS: HEMATOCRIT 34.1 % (35.4-49); MCH 29.2 pg (25.7-33.7); MCHC 35.2 g/dl (32.0-35.9); MEAN CELL VOLUME 82.8 fl (80-96); MEAN PLT VOLUME 8.4 fl (7.5-11.1); PLATELET COUNT 263 10^3/uL (134-434); RBC 4.12 M/mm3 (4.00-5.60); RDW 19.6 % (11.9-15.9); WHITE BLOOD COUNT 8.2 K/mm3 (4.0-10.0)
[2021-06-24 12:56] LABS: CALCIUM 8.6 mg/dL (8.5-10.1)
[2021-06-24 12:57] LABS: ALBUMIN 3.5 g/dl (3.4-5.0); BLOOD UREA NITROGEN 13.5 mg/dL (7-18)
[2021-06-24 13:00] LABS: CREATININE 1.2 mg/dL (0.55-1.3)
[2021-06-24 13:02] LABS: BILIRUBIN,TOTAL 1.1 mg/dL (0.2-1); TOT PROT 6.5 g/dl (6.4-8.2)
[2021-06-24] MEDS: amLODIPine BESYLATE 10 MG TABLET (FP) PO SCH (19:28)
[2021-06-24] MEDS ORDERED: MELATONIN 5 MG TABLETS PO SCH (22:00)
[2021-06-24] MEDS ORDERED: THIAMINE HCL 100 MG TABLET (FP) PO SCH (22:00)
[2021-06-25 00:12] VITALS: TEMP 97.8
[2021-06-25] MEDS ORDERED: cloNIDine HCL 0.1 MG TABLET PO ONE (07:30)
[2021-06-25 09:25] VITALS: BP 155/93; PULSE 102
[2021-06-25] MEDS: PRENATAL VITAMINS W/ FOLIC ACID TABLET (FP) PO SCH (10:37)
[2021-06-25] MEDS: NICOTINE 14 MG/24 HOURS TOPICAL PATCH TD SCH (10:38)
[2021-06-25] MEDS: amLODIPine BESYLATE 10 MG TABLET (FP) PO SCH (10:39)
== END 2021-06-25 10:57 | disposition other institution (70) | DRG 773 ==
LOC: YASAS 14:16 → Y3N 23:18 → UNDOADMIN 23:18
PROVIDERS: ADMIT Allergy & Immunology; ATTEND Allergy & Immunology
PROC: HZ2ZZZZ Detoxification Services for Substance Abuse Treatment (ICD-10-PCS; principal; 2021-06-23)
DX: F11.23 Opioid dependence with withdrawal (principal); F14.20 Cocaine dependence, uncomplicated; F16.20 Hallucinogen dependence, uncomplicated; F17.210 Nicotine dependence, cigarettes, uncomplicated; F41.9 Anxiety disorder, unspecified; F32.A Depression, unspecified; G47.00 Insomnia, unspecified; I10 Essential (primary) hypertension; M54.50 Low back pain, unspecified; G89.29 Other chronic pain; Z56.0 Unemployment, unspecified; Z91.19 Patient's noncompliance with other medical treatment and regimen
CPT/HCPCS: 36415; 80053; 85027; 86780; 93005; 93010; C9803; J0735; U0003; U0005

== ENCOUNTER 2021-09-06 10:33 | Inpatient (IN) | payer OTHER ==
[2021-09-06] MEDS ORDERED: BISMUTH SUBSALICYLATE 524 MG/30 ML PO PRN (11:59)
[2021-09-06] MEDS ORDERED: ACETAMINOPHEN 325 MG TABLET (FP) PO PRN ×2 (11:59)
[2021-09-06] MEDS ORDERED: LOPERAMIDE HCL 2 MG CAPSULE PO PRN (11:59)
[2021-09-06] MEDS ORDERED: IBUPROFEN 400 MG TABLET (FP) PO PRN (11:59)
[2021-09-06] MEDS ORDERED: NICOTINE 10 MG CARTRIDGE (INHALER) IH PRN (11:59)
[2021-09-06] MEDS ORDERED: MAG HYDROX/AL HYDROX/SIMETH 30 ML UNIT-DOSE CUP PO PRN (11:59)
[2021-09-06] MEDS ORDERED: methaDONE HCL 10 MG TABLET (FOR DETOX USE ONLY) PO ONE ×2 (11:59→22:00)
[2021-09-06] MEDS ORDERED: ONDANSETRON *ODT* 4 MG TABLET SL PRN (11:59)
[2021-09-06] MEDS ORDERED: MENTHOL/PHENOL 1 EACH UD MM PRN (11:59)
[2021-09-06] MEDS ORDERED: MAGNESIUM CITRATE 300 ML BOTTLE PO PRN (11:59)
[2021-09-06] MEDS ORDERED: MAGNESIUM HYDROX 2400MG/30ML ORAL SUSPENSION 30 ML CUP PO PRN (11:59)
[2021-09-06 14:41] VITALS: BMI 30.8
[2021-09-06 16:20] LABS: CALCIUM 9.6 mg/dL (8.5-10.1)
[2021-09-06 16:21] LABS: BLOOD UREA NITROGEN 18.2 mg/dL (7-18)
[2021-09-06 16:24] LABS: CREATININE 1.3 mg/dL (0.55-1.3)
[2021-09-06 16:26] LABS: BILIRUBIN,TOTAL 1.2 mg/dL (0.2-1); TOT PROT 7.1 g/dl (6.4-8.2)
[2021-09-06 16:27] LABS: HEMATOCRIT 33.9 % (35.4-49); HEMOGLOBIN 12.3 GM/dL (11.7-16.9); MCH 29.2 pg (25.7-33.7); MCHC 36.2 g/dl (32.0-35.9); MEAN CELL VOLUME 80.7 fl (80-96); MEAN PLT VOLUME 8.4 fl (7.5-11.1); PLATELET COUNT 232 10^3/uL (134-434); RDW 19.7 % (11.9-15.9); WHITE BLOOD COUNT 10.9 K/mm3 (4.0-10.0)
[2021-09-06] MEDS: hydrOXYzine PAMOATE 25 MG CAPSULE (FP) PO SCH ×3 (17:42→21:35)
[2021-09-06] MEDS: THIAMINE HCL 100 MG TABLET (FP) PO SCH (21:35)
[2021-09-06] MEDS: MELATONIN 5 MG TABLETS PO SCH (21:35)
[2021-09-07] MEDS: hydrOXYzine PAMOATE 25 MG CAPSULE (FP) PO SCH ×5 (07:05→22:14)
[2021-09-07] MEDS ORDERED: methaDONE HCL 10 MG TABLET (FOR DETOX USE ONLY) ONE (10:04)
[2021-09-07] MEDS: METHOCARBAMOL 500 MG TABLET PO PRN ×2 (10:22→22:14)
[2021-09-07] MEDS: amLODIPine BESYLATE 10 MG TABLET (FP) PO SCH (10:22)
[2021-09-07] MEDS: PRENATAL VITAMINS W/ FOLIC ACID TABLET (FP) PO SCH (10:24)
[2021-09-07] MEDS: MELATONIN 5 MG TABLETS PO SCH (22:14)
[2021-09-07] MEDS: THIAMINE HCL 100 MG TABLET (FP) PO SCH (22:14)
[2021-09-07] MEDS: cloNIDine HCL 0.1 MG TABLET PO PRN (22:15)
[2021-09-08] MEDS: hydrOXYzine PAMOATE 25 MG CAPSULE (FP) PO SCH ×5 (06:46→22:10)
[2021-09-08] MEDS: PRENATAL VITAMINS W/ FOLIC ACID TABLET (FP) PO SCH (09:52)
[2021-09-08] MEDS: amLODIPine BESYLATE 10 MG TABLET (FP) PO SCH (09:52)
[2021-09-08] MEDS ORDERED: methaDONE HCL 10 MG TABLET (FOR DETOX USE ONLY) PO ONE (10:00)
[2021-09-08] MEDS: cloNIDine HCL 0.1 MG TABLET PO PRN (14:29)
[2021-09-08 18:07] LABS: SARS-CoV-2 NAA Not Detected (Not Detected)
[2021-09-08] MEDS: MELATONIN 5 MG TABLETS PO SCH (22:10)
[2021-09-08] MEDS: THIAMINE HCL 100 MG TABLET (FP) PO SCH (22:10)
[2021-09-08] MEDS: METHOCARBAMOL 500 MG TABLET PO PRN (22:11)
[2021-09-09] MEDS: hydrOXYzine PAMOATE 25 MG CAPSULE (FP) PO SCH ×5 (06:28→22:08)
[2021-09-09] MEDS ORDERED: methaDONE HCL 10 MG TABLET (FOR DETOX USE ONLY) ONE (09:56)
[2021-09-09] MEDS: METHOCARBAMOL 500 MG TABLET PO PRN (10:11)
[2021-09-09] MEDS: PRENATAL VITAMINS W/ FOLIC ACID TABLET (FP) PO SCH (10:11)
[2021-09-09] MEDS: amLODIPine BESYLATE 10 MG TABLET (FP) PO SCH (10:11)
[2021-09-09] MEDS: THIAMINE HCL 100 MG TABLET (FP) PO SCH (22:08)
[2021-09-09] MEDS: MELATONIN 5 MG TABLETS PO SCH (22:08)
[2021-09-10] MEDS: hydrOXYzine PAMOATE 25 MG CAPSULE (FP) PO SCH ×5 (07:48→22:14)
[2021-09-10] MEDS: amLODIPine BESYLATE 10 MG TABLET (FP) PO SCH (09:56)
[2021-09-10] MEDS: METHOCARBAMOL 500 MG TABLET PO PRN (09:56)
[2021-09-10] MEDS: PRENATAL VITAMINS W/ FOLIC ACID TABLET (FP) PO SCH (09:56)
[2021-09-10] MEDS ORDERED: methaDONE HCL 10 MG TABLET (FOR DETOX USE ONLY) PO ONE (10:00)
[2021-09-10] MEDS: THIAMINE HCL 100 MG TABLET (FP) PO SCH (22:14)
[2021-09-10] MEDS: MELATONIN 5 MG TABLETS PO SCH (22:14)
[2021-09-11] MEDS: hydrOXYzine PAMOATE 25 MG CAPSULE (FP) PO SCH ×2 (06:06→09:53)
[2021-09-11 09:10] VITALS: BP 144/80; PULSE 78; TEMP 97.8
[2021-09-11] MEDS: PRENATAL VITAMINS W/ FOLIC ACID TABLET (FP) PO SCH (09:53)
[2021-09-11] MEDS: amLODIPine BESYLATE 10 MG TABLET (FP) PO SCH (09:53)
== END 2021-09-11 11:38 | disposition other institution (70) | DRG 773 ==
LOC: YASAS 10:33 → Y3N 15:53
PROVIDERS: ADMIT Allergy & Immunology; ATTEND Allergy & Immunology
PROC: HZ2ZZZZ Detoxification Services for Substance Abuse Treatment (ICD-10-PCS; principal; 2021-09-06)
DX: F11.23 Opioid dependence with withdrawal (principal); F14.20 Cocaine dependence, uncomplicated; F16.20 Hallucinogen dependence, uncomplicated; F17.210 Nicotine dependence, cigarettes, uncomplicated; I10 Essential (primary) hypertension; M54.50 Low back pain, unspecified; G89.29 Other chronic pain
CPT/HCPCS: 36415; 80053; 85027; 86780; C9803-CS; J0735; U0003; U0005

== ENCOUNTER 2021-09-11 12:04 | Inpatient (IN) | payer OTHER ==
[2021-09-11] MEDS ORDERED: P-EPHED 60MG/TRIPROLIDI 2.5MG TABLET PO PRN (12:19)
[2021-09-11] MEDS ORDERED: MAG HYDROX/AL HYDROX/SIMETH 30 ML UNIT-DOSE CUP PO PRN (12:19)
[2021-09-11] MEDS ORDERED: MENTHOL/PHENOL 1 EACH UD MM PRN (12:19)
[2021-09-11] MEDS ORDERED: LOPERAMIDE HCL 2 MG CAPSULE PO PRN (12:19)
[2021-09-11] MEDS ORDERED: MAGNESIUM HYDROX 2400MG/30ML ORAL SUSPENSION 30 ML CUP PO PRN (12:19)
[2021-09-11] MEDS ORDERED: guaiFENesin 200 MG/10 ML 10 ML UNIT-DOSE CUPS PO PRN (12:19)
[2021-09-11] MEDS ORDERED: MAGNESIUM CITRATE 300 ML BOTTLE PO PRN (12:19)
[2021-09-11] MEDS ORDERED: hydrOXYzine PAMOATE 25 MG CAPSULE (FP) PO SCH (14:00)
[2021-09-11] MEDS ORDERED: hydrOXYzine PAMOATE 25 MG CAPSULE (FP) PO PRN (17:10)
[2021-09-11] MEDS: NICOTINE 10 MG CARTRIDGE (INHALER) IH PRN (21:50)
[2021-09-11] MEDS: MIRTAZAPINE 15 MG TABLET (FP) PO SCH (21:54)
[2021-09-11] MEDS: THIAMINE HCL 100 MG TABLET (FP) PO SCH (21:54)
[2021-09-11] MEDS: IBUPROFEN 400 MG TABLET (FP) PO PRN (21:55)
[2021-09-11] MEDS ORDERED: MELATONIN 5 MG TABLETS PO SCH (22:00)
[2021-09-12] MEDS: SERTRALINE HCL 50 MG TABLET (FP) PO SCH (09:42)
[2021-09-12] MEDS: amLODIPine BESYLATE 10 MG TABLET (FP) PO SCH (09:42)
[2021-09-12] MEDS: NICOTINE 7 MG/24 HOURS TOPICAL PATCH TD SCH (09:42)
[2021-09-12] MEDS: PRENATAL VITAMINS W/ FOLIC ACID TABLET (FP) PO SCH (09:42)
[2021-09-12 12:22] LABS: HIV INTERPRETATION NEGATIVE (NEGATIVE)
[2021-09-12] MEDS: NICOTINE 10 MG CARTRIDGE (INHALER) IH PRN (21:15)
[2021-09-12] MEDS: MIRTAZAPINE 15 MG TABLET (FP) PO SCH (21:15)
[2021-09-12] MEDS: THIAMINE HCL 100 MG TABLET (FP) PO SCH (21:15)
[2021-09-13] MEDS: NICOTINE 7 MG/24 HOURS TOPICAL PATCH TD SCH (10:12)
[2021-09-13] MEDS: SERTRALINE HCL 50 MG TABLET (FP) PO SCH (10:13)
[2021-09-13] MEDS: amLODIPine BESYLATE 10 MG TABLET (FP) PO SCH (10:13)
[2021-09-13] MEDS: PRENATAL VITAMINS W/ FOLIC ACID TABLET (FP) PO SCH (10:13)
[2021-09-13] MEDS: MIRTAZAPINE 15 MG TABLET (FP) PO SCH (21:31)
[2021-09-13] MEDS: THIAMINE HCL 100 MG TABLET (FP) PO SCH (21:31)
[2021-09-13] MEDS: ACETAMINOPHEN 325 MG TABLET (FP) PO PRN (21:33)
[2021-09-14] MEDS: amLODIPine BESYLATE 10 MG TABLET (FP) PO SCH (10:04)
[2021-09-14] MEDS: SERTRALINE HCL 50 MG TABLET (FP) PO SCH (10:04)
[2021-09-14] MEDS: PRENATAL VITAMINS W/ FOLIC ACID TABLET (FP) PO SCH (10:04)
[2021-09-14] MEDS: NICOTINE 7 MG/24 HOURS TOPICAL PATCH TD SCH (10:06)
[2021-09-14] MEDS: MIRTAZAPINE 15 MG TABLET (FP) PO SCH (21:30)
[2021-09-14] MEDS: THIAMINE HCL 100 MG TABLET (FP) PO SCH (21:30)
[2021-09-14] MEDS: ACETAMINOPHEN 325 MG TABLET (FP) PO PRN (21:31)
[2021-09-15] MEDS: PRENATAL VITAMINS W/ FOLIC ACID TABLET (FP) PO SCH (09:49)
[2021-09-15] MEDS: NICOTINE 7 MG/24 HOURS TOPICAL PATCH TD SCH (09:49)
[2021-09-15] MEDS: amLODIPine BESYLATE 10 MG TABLET (FP) PO SCH (09:49)
[2021-09-15] MEDS: SERTRALINE HCL 50 MG TABLET (FP) PO SCH (09:49)
[2021-09-15] MEDS: NICOTINE 10 MG CARTRIDGE (INHALER) IH PRN ×2 (09:50→21:10)
[2021-09-15 10:06] LABS: SARS-CoV-2 NAA Not Detected (Not Detected)
[2021-09-15] MEDS: MIRTAZAPINE 15 MG TABLET (FP) PO SCH (21:10)
[2021-09-15] MEDS: THIAMINE HCL 100 MG TABLET (FP) PO SCH (21:10)
[2021-09-15] MEDS: IBUPROFEN 400 MG TABLET (FP) PO PRN (21:13)
[2021-09-16] MEDS: NICOTINE 10 MG CARTRIDGE (INHALER) IH PRN (09:43)
[2021-09-16] MEDS: PRENATAL VITAMINS W/ FOLIC ACID TABLET (FP) PO SCH (09:43)
[2021-09-16] MEDS: NICOTINE 7 MG/24 HOURS TOPICAL PATCH TD SCH (09:43)
[2021-09-16] MEDS: SERTRALINE HCL 50 MG TABLET (FP) PO SCH (09:43)
[2021-09-16] MEDS: amLODIPine BESYLATE 10 MG TABLET (FP) PO SCH (09:43)
[2021-09-16] MEDS: MIRTAZAPINE 15 MG TABLET (FP) PO SCH (21:23)
[2021-09-16] MEDS: THIAMINE HCL 100 MG TABLET (FP) PO SCH (21:23)
[2021-09-16] MEDS: IBUPROFEN 400 MG TABLET (FP) PO PRN (21:24)
[2021-09-17 06:38] VITALS: TEMP 97.8
[2021-09-17] MEDS: NICOTINE 7 MG/24 HOURS TOPICAL PATCH TD SCH (10:18)
[2021-09-17] MEDS: NICOTINE 10 MG CARTRIDGE (INHALER) IH PRN (10:18)
[2021-09-17] MEDS: amLODIPine BESYLATE 10 MG TABLET (FP) PO SCH (10:18)
[2021-09-17] MEDS: SERTRALINE HCL 50 MG TABLET (FP) PO SCH (10:18)
[2021-09-17] MEDS: PRENATAL VITAMINS W/ FOLIC ACID TABLET (FP) PO SCH (10:18)
[2021-09-17 11:49] VITALS: BP 146/75; PULSE 60
== END 2021-09-17 15:27 | disposition home or self-care (01) | DRG 772 ==
LOC: YASAS 12:04 → Y3E 12:05
PROVIDERS: ADMIT Allergy & Immunology; ATTEND Allergy & Immunology
PROC: HZ42ZZZ Group Counseling for Substance Abuse Treatment, Cognitive-Behavioral (ICD-10-PCS; principal; 2021-09-11)
DX: F11.20 Opioid dependence, uncomplicated (principal); F14.20 Cocaine dependence, uncomplicated; F16.20 Hallucinogen dependence, uncomplicated; F17.210 Nicotine dependence, cigarettes, uncomplicated; F19.24 Other psychoactive substance dependence with psychoactive substance-induced mood disorder; F41.9 Anxiety disorder, unspecified; F32.A Depression, unspecified; G47.00 Insomnia, unspecified; I10 Essential (primary) hypertension; K59.01 Slow transit constipation; Z91.19 Patient's noncompliance with other medical treatment and regimen
CPT/HCPCS: 36415; 87389; C9803-CS; U0003; U0005

== ENCOUNTER 2021-10-01 10:17 | Emergency (ER) | payer OTHER ==
[2021-10-01 10:48] VITALS: BP 140/89; PULSE 64; TEMP 98.6; BMI 30.1
[2021-10-01] MEDS ORDERED: DEXAMETHASONE SOD PHOSPHATE 10 MG/1 ML VIAL IM ONE (11:27)
[2021-10-01] MEDS ORDERED: ALBUTEROL SO4 2.5/IPRATROPIUM 0.5 INH SOL 3 ML VIAL.NEB. NEB SCH (11:30)
[2021-10-01] MEDS ORDERED: DEXAMETHASONE SOD PHOSPHATE 10 MG/1 ML VIAL ONE (12:14)
[2021-10-01] MEDS ORDERED: ALBUTEROL SO4 2.5/IPRATROPIUM 0.5 INH SOL 3 ML VIAL.NEB. NEB ONE (12:14)
== END 2021-10-01 14:47 | disposition home or self-care (01) ==
LOC: JER 10:17
PROC: 3E023GC Introduction of Other Therapeutic Substance into Muscle, Percutaneous Approach (ICD-10-PCS; principal; 2021-10-01)
PROC: 3E0F7GC Introduction of Other Therapeutic Substance into Respiratory Tract, Via Natural or Artificial Opening (ICD-10-PCS; 2021-10-01)
DX: J45.909 Unspecified asthma, uncomplicated (principal)
CPT/HCPCS: 71046-TC-FY; 99284-25; J1100

== ENCOUNTER 2022-01-07 09:33 | Inpatient (IN) | payer OTHER ==
[2022-01-07 10:55] VITALS: BMI 27.8
[2022-01-07] MEDS ORDERED: BISMUTH SUBSALICYLATE 262 MG/15 ML BTL PO PRN (11:29)
[2022-01-07] MEDS ORDERED: DICYCLOMINE HCL 10 MG CAPSULE PO PRN (11:29)
[2022-01-07] MEDS ORDERED: BENZOCAINE/MENTHOL (CHLORASEPTIC ) LOZENGE MM PRN (11:29)
[2022-01-07] MEDS ORDERED: MAGNESIUM HYDROX 2400MG/30ML ORAL SUSPENSION 30 ML CUP PO PRN (11:29)
[2022-01-07] MEDS ORDERED: IBUPROFEN 600 MG TABLET (FP) PO PRN (11:29)
[2022-01-07] MEDS ORDERED: ONDANSETRON *ODT* 4 MG TABLET SL PRN (11:29)
[2022-01-07] MEDS ORDERED: NALOXONE HCL (KLOXXADO) 8 MG SPRAY NS PRN (11:29)
[2022-01-07] MEDS ORDERED: LOPERAMIDE HCL 2 MG CAPSULE PO PRN (11:29)
[2022-01-07] MEDS ORDERED: MAG HYDROX/AL HYDROX/SIMETH 30 ML UNIT-DOSE CUP PO PRN (11:29)
[2022-01-07] MEDS ORDERED: MAGNESIUM CITRATE 300 ML BOTTLE PO PRN (11:29)
[2022-01-07] MEDS ORDERED: IBUPROFEN 400 MG TABLET (FP) PO PRN (11:29)
[2022-01-07] MEDS ORDERED: NICOTINE 10 MG CARTRIDGE (INHALER) IH PRN (11:29)
[2022-01-07] MEDS ORDERED: ACETAMINOPHEN 325 MG TABLET (FP) PO PRN ×2 (11:29)
[2022-01-07] MEDS ORDERED: amLODIPine BESYLATE 10 MG TABLET (FP) PO SCH (11:45)
[2022-01-07] MEDS: hydrOXYzine PAMOATE 25 MG CAPSULE (FP) PO SCH ×3 (14:47→22:25)
[2022-01-07] MEDS ORDERED: methaDONE HCL 10 MG TABLET (FOR DETOX USE ONLY) PO ONE (17:00)
[2022-01-07] MEDS: METHOCARBAMOL 500 MG TABLET PO PRN (17:16)
[2022-01-07] MEDS: cloNIDine HCL 0.1 MG TABLET PO PRN (17:16)
[2022-01-07] MEDS ORDERED: MELATONIN 5 MG TABLETS PO SCH (22:00)
[2022-01-07] MEDS ORDERED: THIAMINE HCL 100 MG TABLET (FP) PO SCH (22:00)
[2022-01-07 22:43] VITALS: TEMP 97.5
[2022-01-08] MEDS: cloNIDine HCL 0.1 MG TABLET PO PRN (00:25)
[2022-01-08] MEDS: METHOCARBAMOL 500 MG TABLET PO PRN (00:25)
[2022-01-08] MEDS ORDERED: ALBUTEROL SO4 0.083% IH SOL 2.5 MG/3 ML VIAL.NEB. NEB ONE ×2 (00:37→00:43)
[2022-01-08] MEDS ORDERED: ALBUTEROL SO4 HFA INHALER IH ONE (00:38)
[2022-01-08 01:55] VITALS: BP 170/101; PULSE 87
[2022-01-08] MEDS: hydrOXYzine PAMOATE 25 MG CAPSULE (FP) PO SCH (05:55)
[2022-01-08] MEDS ORDERED: PRENATAL VITAMINS W/ FOLIC ACID TABLET (FP) PO SCH (10:00)
[2022-01-09] MEDS ORDERED: methaDONE HCL 10 MG TABLET (FOR DETOX USE ONLY) PO ONE (10:00)
[2022-01-11] MEDS ORDERED: methaDONE HCL 10 MG TABLET (FOR DETOX USE ONLY) PO ONE (10:00)
== END 2022-01-08 07:30 | disposition short-term general hospital (02) | DRG 773 ==
LOC: YASAS 09:33 → Y6N 11:30
PROVIDERS: ADMIT Allergy & Immunology; ATTEND Surgery
PROC: HZ2ZZZZ Detoxification Services for Substance Abuse Treatment (ICD-10-PCS; principal; 2022-01-07)
DX: F11.23 Opioid dependence with withdrawal (principal); F14.20 Cocaine dependence, uncomplicated; F16.20 Hallucinogen dependence, uncomplicated; F17.210 Nicotine dependence, cigarettes, uncomplicated; F41.8 Other specified anxiety disorders; F32.A Depression, unspecified; I10 Essential (primary) hypertension; R07.9 Chest pain, unspecified; Z59.02 Unsheltered homelessness
CPT/HCPCS: 0241U-QW; 82962; 87811; 94640; C9803-CS; J0735; U0003; U0005

== ENCOUNTER 2022-01-08 02:11 | Inpatient (IN) | payer OTHER ==
[2022-01-08 02:32] VITALS: TEMP 98.1; BMI 28.7
[2022-01-08] MEDS ORDERED: methylPREDNISolone NA SUCC 125 MG/2 ML VIAL IVPB ONE (02:40)
[2022-01-08] MEDS ORDERED: methylPREDNISolone NA SUCC 125 MG/2 ML VIAL ONE (02:53)
[2022-01-08] MEDS ORDERED: ALBUTEROL SO4 2.5/IPRATROPIUM 0.5 INH SOL 3 ML VIAL.NEB. NEB ONE (02:53)
[2022-01-08] MEDS: ALBUTEROL SO4 2.5/IPRATROPIUM 0.5 INH SOL 3 ML VIAL.NEB. NEB SCH ×4 (03:09→04:53)
[2022-01-08 03:40] LABS: BASO % 2.5 % (0-2.0); EOS % 6.7 % (0-4.5); HEMOGLOBIN 13.8 GM/dL (11.7-16.9); LYMPH % 11.4 % (8-40); MCH 29.5 pg (25.7-33.7); MCHC 35.5 g/dl (32.0-35.9); MEAN CELL VOLUME 83.1 fl (80-96); MEAN PLT VOLUME 7.6 fl (7.5-11.1); MONO % 12.7 % (3.8-10.2); NEUT % 66.7 % (42.8-82.8); PLATELET COUNT 266 10^3/uL (134-434); RBC 4.69 M/mm3 (4.00-5.60); RDW 19.5 % (11.9-15.9); WHITE BLOOD COUNT 6.7 K/mm3 (4.0-10.0)
[2022-01-08 03:48] LABS: INR 1.06 (0.83-1.09); PROTHROMBIN TIME (PATIENT) 12.2 SEC (9.7-13.0)
[2022-01-08 03:50] LABS: ACTIVATED PTT 26.9 SECONDS (25.2-36.5)
[2022-01-08 04:01] LABS: CALCIUM 8.2 mg/dL (8.5-10.1)
[2022-01-08 04:02] LABS: ALBUMIN 2.7 g/dl (3.4-5.0); BLOOD UREA NITROGEN 12.9 mg/dL (7-18); MAGNESIUM 2.2 mg/dL (1.8-2.4)
[2022-01-08 04:05] LABS: CREATININE 0.9 mg/dL (0.55-1.3); PHOSPHOROUS 2.6 mg/dL (2.5-4.9)
[2022-01-08 04:07] LABS: BILIRUBIN,TOTAL 1.7 mg/dL (0.2-1); TOT PROT 5.4 g/dl (6.4-8.2)
[2022-01-08] MEDS ORDERED: ASPIRIN 81 MG CHEWABLE TABLETS PO ONE (04:45)
[2022-01-08 04:58] LABS: N-TERMINAL BNP 8740.4 pg/ml (5-125)
[2022-01-08] MEDS ORDERED: FUROSEMIDE 40 MG/4 ML INJECTABLE VIAL IVPUSH ONE ×2 (05:07→08:36)
[2022-01-08] MEDS ORDERED: ASPIRIN 81 MG CHEWABLE TABLETS ONE (05:22)
[2022-01-08] MEDS ORDERED: FUROSEMIDE 40 MG/4 ML INJECTABLE VIAL ONE ×2 (05:24→09:39)
[2022-01-08] MEDS ORDERED: NITROGLYCERIN 50MG/D5W 250ML 50 MG/250 ML ML IVPB SCH (07:30)
[2022-01-08] MEDS ORDERED: NITROGLYCERIN 25MG/D5W 250ML 25 MG/250 ML ML IVPB ONE (07:40)
[2022-01-08] MEDS ORDERED: ENOXAPARIN NA (PORCINE) 100 MG/1 ML DISP.SYRIN SQ ONE ×2 (08:35→10:09)
[2022-01-08 10:11] LABS: URINE BENZODIAZEPINES NEGATIVE (NEGATIVE)
[2022-01-08 10:12] LABS: COCAINE, UR NEGATIVE (NEGATIVE); METHADONE, UR NEGATIVE (NEGATIVE); OPIATES, URI NEGATIVE (NEGATIVE); URINE BARBITURATES NEGATIVE (NEGATIVE)
[2022-01-08] MEDS ORDERED: LISINOPRIL 20 MG TABLET PO SCH (10:15)
[2022-01-08 10:16] LABS: URINE AMPHETAMINES NEGATIVE (NEGATIVE)
[2022-01-08 10:39] LABS: PHENCYCLIDINE,URINE POSITIVE (NEGATIVE)
[2022-01-08] MEDS ORDERED: methaDONE HCL 10 MG TABLET PO ONE (11:00)
[2022-01-08] MEDS ORDERED: METOPROLOL TARTRATE 25 MG TABLET (FP) PO SCH (11:00)
[2022-01-08] MEDS ORDERED: amLODIPine BESYLATE 10 MG TABLET (FP) PO SCH (11:00)
[2022-01-08] MEDS ORDERED: methaDONE HCL 10 MG TABLET ONE (11:04)
[2022-01-08] MEDS ORDERED: LISINOPRIL 20 MG TABLET ONE (11:04)
[2022-01-08 12:09] LABS: PH,URINE 7.5 (5.0-8.0); URINE APPEARANCE CLEAR; URINE BILIRUBIN NEGATIVE (NEGATIVE); URINE COLOR YELLOW; URINE GLUCOSE (UA) NEGATIVE (NEGATIVE); URINE KETONE NEGATIVE (NEGATIVE); URINE LEUK ESTERASE NEGATIVE (NEGATIVE); URINE NITRITE NEGATIVE (NEGATIVE); URINE PROTEIN NEGATIVE (NEGATIVE)
[2022-01-08 20:03] VITALS: BP 128/100; PULSE 79
[2022-01-08] MEDS ORDERED: MIRTAZAPINE 15 MG TABLET (FP) PO SCH (22:00)
[2022-01-09] MEDS ORDERED: methaDONE HCL 10 MG TABLET PO ONE (09:00)
[2022-01-09] MEDS ORDERED: SERTRALINE HCL 50 MG TABLET (FP) PO SCH (10:00)
[2022-01-09] MEDS ORDERED: FUROSEMIDE 40 MG/4 ML INJECTABLE VIAL IVPUSH SCH (10:00)
[2022-01-09] MEDS ORDERED: ENOXAPARIN NA (PORCINE) 40 MG/0.4 ML DISP.SYRIN SQ SCH (10:00)
[2022-01-10] MEDS ORDERED: methaDONE HCL 10 MG TABLET (FOR DETOX USE ONLY) PO ONE (09:00)
[2022-01-11] MEDS ORDERED: methaDONE HCL 10 MG TABLET PO ONE (10:00)
== END 2022-01-08 20:20 | disposition short-term general hospital (02) | DRG 190 ==
LOC: JER 02:11 → JERBED 05:29
PROVIDERS: ADMIT Internal Medicine; ATTEND Internal Medicine
DX: I25.10 Atherosclerotic heart disease of native coronary artery without angina pectoris (principal); I21.A1 Myocardial infarction type 2; J81.0 Acute pulmonary edema; I50.33 Acute on chronic diastolic (congestive) heart failure; E88.09 Other disorders of plasma-protein metabolism, not elsewhere classified; I11.0 Hypertensive heart disease with heart failure; F11.90 Opioid use, unspecified, uncomplicated; F17.200 Nicotine dependence, unspecified, uncomplicated; G89.29 Other chronic pain; I16.1 Hypertensive emergency; R09.02 Hypoxemia; F41.8 Other specified anxiety disorders
CPT/HCPCS: 0241U-QW; 36415; 71045-TC-FY; 80053; 80061; 80307; 81003; 83735; 83880; 84100; 84484; 85025; 85610; 85730; 93005; 93010; 93306-TC; 94660; 99285-25

== ENCOUNTER 2022-01-16 15:07 | Inpatient (IN) | payer OTHER ==
[2022-01-16 15:49] VITALS: BMI 26.3
[2022-01-16] MEDS ORDERED: LOPERAMIDE HCL 2 MG CAPSULE PO PRN (16:03)
[2022-01-16] MEDS ORDERED: guaiFENesin 200 MG/10 ML 10 ML UNIT-DOSE CUPS PO PRN (16:03)
[2022-01-16] MEDS ORDERED: ACETAMINOPHEN 325 MG TABLET (FP) PO PRN (16:03)
[2022-01-16] MEDS ORDERED: P-EPHED 60MG/TRIPROLIDI 2.5MG TABLET PO PRN (16:03)
[2022-01-16] MEDS ORDERED: MAGNESIUM HYDROX 2400MG/30ML ORAL SUSPENSION 30 ML CUP PO PRN (16:03)
[2022-01-16] MEDS ORDERED: MAGNESIUM CITRATE 300 ML BOTTLE PO PRN (16:03)
[2022-01-16] MEDS ORDERED: MAG HYDROX/AL HYDROX/SIMETH 30 ML UNIT-DOSE CUP PO PRN (16:03)
[2022-01-16] MEDS: NICOTINE 7 MG/24 HOURS TOPICAL PATCH TD SCH (18:11)
[2022-01-16] MEDS: hydrOXYzine PAMOATE 25 MG CAPSULE (FP) PO SCH ×2 (18:12→21:38)
[2022-01-16] MEDS: PRENATAL VITAMINS W/ FOLIC ACID TABLET (FP) PO SCH (18:12)
[2022-01-16] MEDS: SACUBITRIL/VALSARTAN 24 MG-26 MG TABLET PO SCH (21:37)
[2022-01-16] MEDS: THIAMINE HCL 100 MG TABLET (FP) PO SCH (21:38)
[2022-01-16] MEDS: ATORVASTATIN CA 80 MG TABLET (FP) PO SCH (21:38)
[2022-01-16] MEDS: IBUPROFEN 400 MG TABLET (FP) PO PRN (21:39)
[2022-01-16] MEDS ORDERED: MELATONIN 5 MG TABLETS PO SCH (22:00)
[2022-01-17] MEDS: hydrOXYzine PAMOATE 25 MG CAPSULE (FP) PO SCH ×5 (06:35→21:09)
[2022-01-17 09:41] LABS: HEMATOCRIT 31.7 % (35.4-49); HEMOGLOBIN 11.8 GM/dL (11.7-16.9); MCH 29.4 pg (25.7-33.7); MCHC 37.1 g/dl (32.0-35.9); MEAN CELL VOLUME 79.3 fl (80-96); PLATELET COUNT 264 10^3/uL (134-434); RDW 19.6 % (11.9-15.9); WHITE BLOOD COUNT 6.6 K/mm3 (4.0-10.0)
[2022-01-17] MEDS: ASPIRIN COATED 81 MG TABLET.EC PO SCH (09:41)
[2022-01-17] MEDS: NICOTINE 7 MG/24 HOURS TOPICAL PATCH TD SCH (09:42)
[2022-01-17] MEDS: SACUBITRIL/VALSARTAN 24 MG-26 MG TABLET PO SCH ×2 (09:42→21:09)
[2022-01-17] MEDS: FAMOTIDINE 20 MG TABLET PO SCH (09:42)
[2022-01-17] MEDS: PRENATAL VITAMINS W/ FOLIC ACID TABLET (FP) PO SCH (09:43)
[2022-01-17] MEDS: SERTRALINE HCL 50 MG TABLET (FP) PO SCH (09:43)
[2022-01-17] MEDS: metoPROLOL SUCCINATE 25 MG TAB.SR.24H (FP) PO SCH (09:45)
[2022-01-17 09:59] LABS: CALCIUM 8.9 mg/dL (8.5-10.1)
[2022-01-17 10:04] LABS: BILIRUBIN,TOTAL 1.4 mg/dL (0.2-1); TOT PROT 5.8 g/dl (6.4-8.2)
[2022-01-17 12:48] LABS: SYPHILIS W/ RPR CONF NON-REACTIVE (NONREACTIVE)
[2022-01-17 14:37] LABS: EPI CELLS 3 /uL (0-25.1); HYALINE CASTS 1 /uL (0-3.1); URINE APPEARANCE CLEAR; URINE BACTERIA 6 /uL (0-1359); URINE BILIRUBIN NEGATIVE (NEGATIVE); URINE COLOR DK YELLOW; URINE GLUCOSE (UA) NEGATIVE (NEGATIVE); URINE KETONE NEGATIVE (NEGATIVE); URINE LEUK ESTERASE TRACE (NEGATIVE); URINE NITRITE NEGATIVE (NEGATIVE); URINE PROTEIN NEGATIVE (NEGATIVE); URINE RBC 6 /uL (0-23.9); URINE WBC 22 /uL (0-25.8)
[2022-01-17] MEDS: ATORVASTATIN CA 80 MG TABLET (FP) PO SCH (21:09)
[2022-01-17] MEDS: THIAMINE HCL 100 MG TABLET (FP) PO SCH (21:09)
[2022-01-17] MEDS: MIRTAZAPINE 15 MG TABLET (FP) PO SCH (21:10)
[2022-01-17] MEDS: IBUPROFEN 400 MG TABLET (FP) PO PRN (21:11)
[2022-01-18] MEDS: hydrOXYzine PAMOATE 25 MG CAPSULE (FP) PO SCH ×5 (07:10→21:42)
[2022-01-18] MEDS: PRENATAL VITAMINS W/ FOLIC ACID TABLET (FP) PO SCH (09:32)
[2022-01-18] MEDS: NICOTINE 10 MG CARTRIDGE (INHALER) IH PRN (09:32)
[2022-01-18] MEDS: NICOTINE 7 MG/24 HOURS TOPICAL PATCH TD SCH (09:32)
[2022-01-18] MEDS: ASPIRIN COATED 81 MG TABLET.EC PO SCH (09:33)
[2022-01-18] MEDS: SERTRALINE HCL 50 MG TABLET (FP) PO SCH (09:33)
[2022-01-18] MEDS: SACUBITRIL/VALSARTAN 24 MG-26 MG TABLET PO SCH ×2 (09:34→21:43)
[2022-01-18] MEDS: FAMOTIDINE 20 MG TABLET PO SCH (09:35)
[2022-01-18] MEDS: metoPROLOL SUCCINATE 25 MG TAB.SR.24H (FP) PO SCH (09:36)
[2022-01-18] MEDS: THIAMINE HCL 100 MG TABLET (FP) PO SCH (21:42)
[2022-01-18] MEDS: ATORVASTATIN CA 80 MG TABLET (FP) PO SCH (21:42)
[2022-01-18] MEDS: MIRTAZAPINE 15 MG TABLET (FP) PO SCH (21:42)
[2022-01-19] MEDS: hydrOXYzine PAMOATE 25 MG CAPSULE (FP) PO SCH ×5 (06:35→21:58)
[2022-01-19] MEDS: NICOTINE 7 MG/24 HOURS TOPICAL PATCH TD SCH (10:11)
[2022-01-19] MEDS: metoPROLOL SUCCINATE 25 MG TAB.SR.24H (FP) PO SCH (10:11)
[2022-01-19] MEDS: SACUBITRIL/VALSARTAN 24 MG-26 MG TABLET PO SCH ×2 (10:11→21:37)
[2022-01-19] MEDS: SERTRALINE HCL 50 MG TABLET (FP) PO SCH (10:11)
[2022-01-19] MEDS: ASPIRIN COATED 81 MG TABLET.EC PO SCH (10:11)
[2022-01-19] MEDS: PRENATAL VITAMINS W/ FOLIC ACID TABLET (FP) PO SCH (10:12)
[2022-01-19] MEDS: FAMOTIDINE 20 MG TABLET PO SCH (10:12)
[2022-01-19] MEDS: ATORVASTATIN CA 80 MG TABLET (FP) PO SCH (21:35)
[2022-01-19] MEDS: MIRTAZAPINE 15 MG TABLET (FP) PO SCH (21:35)
[2022-01-19] MEDS: IBUPROFEN 400 MG TABLET (FP) PO PRN (21:38)
[2022-01-19] MEDS: THIAMINE HCL 100 MG TABLET (FP) PO SCH (21:58)
[2022-01-20] MEDS: hydrOXYzine PAMOATE 25 MG CAPSULE (FP) PO SCH ×5 (06:27→21:07)
[2022-01-20] MEDS: NICOTINE 7 MG/24 HOURS TOPICAL PATCH TD SCH (10:09)
[2022-01-20] MEDS: FAMOTIDINE 20 MG TABLET PO SCH (10:09)
[2022-01-20] MEDS: ASPIRIN COATED 81 MG TABLET.EC PO SCH (10:09)
[2022-01-20] MEDS: SERTRALINE HCL 50 MG TABLET (FP) PO SCH (10:09)
[2022-01-20] MEDS: PRENATAL VITAMINS W/ FOLIC ACID TABLET (FP) PO SCH (10:10)
[2022-01-20] MEDS: metoPROLOL SUCCINATE 25 MG TAB.SR.24H (FP) PO SCH (10:15)
[2022-01-20] MEDS: SACUBITRIL/VALSARTAN 24 MG-26 MG TABLET PO SCH ×2 (10:16→21:07)
[2022-01-20] MEDS: METHYL SALICYLATE/MENTHOL OINT 30 GM TUBE TP SCH (14:01)
[2022-01-20] MEDS: FERROUS SO4 325 MG TABLET (FP) PO SCH (17:50)
[2022-01-20] MEDS: THIAMINE HCL 100 MG TABLET (FP) PO SCH (21:07)
[2022-01-20] MEDS: ATORVASTATIN CA 80 MG TABLET (FP) PO SCH (21:07)
[2022-01-20] MEDS: MIRTAZAPINE 15 MG TABLET (FP) PO SCH (21:07)
[2022-01-20] MEDS: IBUPROFEN 400 MG TABLET (FP) PO PRN (21:08)
[2022-01-21] MEDS: hydrOXYzine PAMOATE 25 MG CAPSULE (FP) PO SCH (06:43)
[2022-01-21] MEDS: FERROUS SO4 325 MG TABLET (FP) PO SCH ×2 (07:06→18:39)
[2022-01-21] MEDS: SACUBITRIL/VALSARTAN 24 MG-26 MG TABLET PO SCH ×2 (09:47→21:18)
[2022-01-21] MEDS: ASPIRIN COATED 81 MG TABLET.EC PO SCH (09:47)
[2022-01-21] MEDS: METHYL SALICYLATE/MENTHOL OINT 30 GM TUBE TP SCH (09:47)
[2022-01-21] MEDS: metoPROLOL SUCCINATE 25 MG TAB.SR.24H (FP) PO SCH (09:47)
[2022-01-21] MEDS: NICOTINE 7 MG/24 HOURS TOPICAL PATCH TD SCH (09:48)
[2022-01-21] MEDS: PRENATAL VITAMINS W/ FOLIC ACID TABLET (FP) PO SCH (09:48)
[2022-01-21] MEDS: FAMOTIDINE 20 MG TABLET PO SCH (09:48)
[2022-01-21] MEDS: SERTRALINE HCL 50 MG TABLET (FP) PO SCH (09:48)
[2022-01-21] MEDS: NICOTINE 10 MG CARTRIDGE (INHALER) IH PRN (09:49)
[2022-01-21] MEDS: THIAMINE HCL 100 MG TABLET (FP) PO SCH (21:16)
[2022-01-21] MEDS: MIRTAZAPINE 15 MG TABLET (FP) PO SCH (21:17)
[2022-01-21] MEDS: IBUPROFEN 400 MG TABLET (FP) PO PRN (21:17)
[2022-01-21] MEDS: ATORVASTATIN CA 80 MG TABLET (FP) PO SCH (21:17)
[2022-01-21] MEDS: hydrOXYzine PAMOATE 25 MG CAPSULE (FP) PO PRN (21:17)
[2022-01-22] MEDS: FERROUS SO4 325 MG TABLET (FP) PO SCH ×2 (07:10→18:52)
[2022-01-22] MEDS: SACUBITRIL/VALSARTAN 24 MG-26 MG TABLET PO SCH ×2 (09:44→21:25)
[2022-01-22] MEDS: SERTRALINE HCL 50 MG TABLET (FP) PO SCH (09:44)
[2022-01-22] MEDS: PRENATAL VITAMINS W/ FOLIC ACID TABLET (FP) PO SCH (09:45)
[2022-01-22] MEDS: FAMOTIDINE 20 MG TABLET PO SCH (09:45)
[2022-01-22] MEDS: METHYL SALICYLATE/MENTHOL OINT 30 GM TUBE TP SCH (09:45)
[2022-01-22] MEDS: metoPROLOL SUCCINATE 25 MG TAB.SR.24H (FP) PO SCH (09:45)
[2022-01-22] MEDS: ASPIRIN COATED 81 MG TABLET.EC PO SCH (09:46)
[2022-01-22] MEDS: NICOTINE 7 MG/24 HOURS TOPICAL PATCH TD SCH (09:46)
[2022-01-22] MEDS: THIAMINE HCL 100 MG TABLET (FP) PO SCH (21:23)
[2022-01-22] MEDS: ATORVASTATIN CA 80 MG TABLET (FP) PO SCH (21:23)
[2022-01-22] MEDS: MIRTAZAPINE 15 MG TABLET (FP) PO SCH (21:23)
[2022-01-22] MEDS: IBUPROFEN 400 MG TABLET (FP) PO PRN (21:24)
[2022-01-23] MEDS: FERROUS SO4 325 MG TABLET (FP) PO SCH ×2 (08:47→18:07)
[2022-01-23] MEDS: METHYL SALICYLATE/MENTHOL OINT 30 GM TUBE TP SCH (09:42)
[2022-01-23] MEDS: ASPIRIN COATED 81 MG TABLET.EC PO SCH (09:42)
[2022-01-23] MEDS: SACUBITRIL/VALSARTAN 24 MG-26 MG TABLET PO SCH ×2 (09:43→21:16)
[2022-01-23] MEDS: PRENATAL VITAMINS W/ FOLIC ACID TABLET (FP) PO SCH (09:43)
[2022-01-23] MEDS: metoPROLOL SUCCINATE 25 MG TAB.SR.24H (FP) PO SCH (09:43)
[2022-01-23] MEDS: SERTRALINE HCL 50 MG TABLET (FP) PO SCH (09:43)
[2022-01-23] MEDS: FAMOTIDINE 20 MG TABLET PO SCH (09:43)
[2022-01-23] MEDS: NICOTINE 7 MG/24 HOURS TOPICAL PATCH TD SCH (09:44)
[2022-01-23] MEDS: THIAMINE HCL 100 MG TABLET (FP) PO SCH (21:15)
[2022-01-23] MEDS: IBUPROFEN 400 MG TABLET (FP) PO PRN (21:15)
[2022-01-23] MEDS: MIRTAZAPINE 15 MG TABLET (FP) PO SCH (21:15)
[2022-01-23] MEDS: ATORVASTATIN CA 80 MG TABLET (FP) PO SCH (21:15)
[2022-01-24] MEDS: FERROUS SO4 325 MG TABLET (FP) PO SCH ×2 (07:41→17:56)
[2022-01-24] MEDS: metoPROLOL SUCCINATE 25 MG TAB.SR.24H (FP) PO SCH (09:45)
[2022-01-24] MEDS: NICOTINE 10 MG CARTRIDGE (INHALER) IH PRN (09:45)
[2022-01-24] MEDS: ASPIRIN COATED 81 MG TABLET.EC PO SCH (09:45)
[2022-01-24] MEDS: SERTRALINE HCL 50 MG TABLET (FP) PO SCH (09:46)
[2022-01-24] MEDS: METHYL SALICYLATE/MENTHOL OINT 30 GM TUBE TP SCH (09:46)
[2022-01-24] MEDS: PRENATAL VITAMINS W/ FOLIC ACID TABLET (FP) PO SCH (09:46)
[2022-01-24] MEDS: FAMOTIDINE 20 MG TABLET PO SCH (09:46)
[2022-01-24] MEDS: SACUBITRIL/VALSARTAN 24 MG-26 MG TABLET PO SCH ×2 (09:46→21:10)
[2022-01-24] MEDS: NICOTINE 7 MG/24 HOURS TOPICAL PATCH TD SCH (09:46)
[2022-01-24] MEDS: ATORVASTATIN CA 80 MG TABLET (FP) PO SCH (21:10)
[2022-01-24] MEDS: MIRTAZAPINE 15 MG TABLET (FP) PO SCH (21:10)
[2022-01-24] MEDS: THIAMINE HCL 100 MG TABLET (FP) PO SCH (21:10)
[2022-01-24] MEDS: IBUPROFEN 400 MG TABLET (FP) PO PRN (21:12)
[2022-01-25] MEDS: FERROUS SO4 325 MG TABLET (FP) PO SCH ×2 (07:22→17:25)
[2022-01-25] MEDS: metoPROLOL SUCCINATE 25 MG TAB.SR.24H (FP) PO SCH (09:43)
[2022-01-25] MEDS: SACUBITRIL/VALSARTAN 24 MG-26 MG TABLET PO SCH ×2 (09:43→21:04)
[2022-01-25] MEDS: FAMOTIDINE 20 MG TABLET PO SCH (09:43)
[2022-01-25] MEDS: SERTRALINE HCL 50 MG TABLET (FP) PO SCH (09:43)
[2022-01-25] MEDS: ASPIRIN COATED 81 MG TABLET.EC PO SCH (09:43)
[2022-01-25] MEDS: METHYL SALICYLATE/MENTHOL OINT 30 GM TUBE TP SCH (09:45)
[2022-01-25] MEDS: PRENATAL VITAMINS W/ FOLIC ACID TABLET (FP) PO SCH (09:45)
[2022-01-25] MEDS: NICOTINE 7 MG/24 HOURS TOPICAL PATCH TD SCH (09:45)
[2022-01-25] MEDS: THIAMINE HCL 100 MG TABLET (FP) PO SCH (21:02)
[2022-01-25] MEDS: ATORVASTATIN CA 80 MG TABLET (FP) PO SCH (21:03)
[2022-01-25] MEDS: MIRTAZAPINE 15 MG TABLET (FP) PO SCH (21:03)
[2022-01-25] MEDS: IBUPROFEN 400 MG TABLET (FP) PO PRN (21:03)
[2022-01-26] MEDS: FERROUS SO4 325 MG TABLET (FP) PO SCH ×2 (07:32→17:59)
[2022-01-26] MEDS: NICOTINE 7 MG/24 HOURS TOPICAL PATCH TD SCH (09:38)
[2022-01-26] MEDS: FAMOTIDINE 20 MG TABLET PO SCH (09:39)
[2022-01-26] MEDS: SERTRALINE HCL 50 MG TABLET (FP) PO SCH (09:39)
[2022-01-26] MEDS: ASPIRIN COATED 81 MG TABLET.EC PO SCH (09:39)
[2022-01-26] MEDS: NICOTINE 10 MG CARTRIDGE (INHALER) IH PRN (09:43)
[2022-01-26] MEDS: PRENATAL VITAMINS W/ FOLIC ACID TABLET (FP) PO SCH (09:44)
[2022-01-26] MEDS: metoPROLOL SUCCINATE 25 MG TAB.SR.24H (FP) PO SCH (09:45)
[2022-01-26] MEDS: SACUBITRIL/VALSARTAN 24 MG-26 MG TABLET PO SCH ×2 (11:00→21:15)
[2022-01-26] MEDS: METHYL SALICYLATE/MENTHOL OINT 30 GM TUBE TP SCH (11:03)
[2022-01-26] MEDS: IBUPROFEN 400 MG TABLET (FP) PO PRN (21:14)
[2022-01-26] MEDS: THIAMINE HCL 100 MG TABLET (FP) PO SCH (21:14)
[2022-01-26] MEDS: MIRTAZAPINE 15 MG TABLET (FP) PO SCH (21:14)
[2022-01-26] MEDS: ATORVASTATIN CA 80 MG TABLET (FP) PO SCH (21:14)
[2022-01-27] MEDS: FERROUS SO4 325 MG TABLET (FP) PO SCH ×2 (08:28→18:51)
[2022-01-27] MEDS: FAMOTIDINE 20 MG TABLET PO SCH (10:09)
[2022-01-27] MEDS: METHYL SALICYLATE/MENTHOL OINT 30 GM TUBE TP SCH (10:09)
[2022-01-27] MEDS: ASPIRIN COATED 81 MG TABLET.EC PO SCH (10:09)
[2022-01-27] MEDS: PRENATAL VITAMINS W/ FOLIC ACID TABLET (FP) PO SCH (10:09)
[2022-01-27] MEDS: NICOTINE 7 MG/24 HOURS TOPICAL PATCH TD SCH (10:10)
[2022-01-27] MEDS: SERTRALINE HCL 50 MG TABLET (FP) PO SCH (10:10)
[2022-01-27] MEDS: SACUBITRIL/VALSARTAN 24 MG-26 MG TABLET PO SCH ×2 (10:25→21:09)
[2022-01-27] MEDS: metoPROLOL SUCCINATE 25 MG TAB.SR.24H (FP) PO SCH (10:25)
[2022-01-27] MEDS: THIAMINE HCL 100 MG TABLET (FP) PO SCH (21:08)
[2022-01-27] MEDS: IBUPROFEN 400 MG TABLET (FP) PO PRN (21:08)
[2022-01-27] MEDS: ATORVASTATIN CA 80 MG TABLET (FP) PO SCH (21:08)
[2022-01-27] MEDS: MIRTAZAPINE 15 MG TABLET (FP) PO SCH (21:09)
[2022-01-28] MEDS: FERROUS SO4 325 MG TABLET (FP) PO SCH ×2 (07:02→17:45)
[2022-01-28] MEDS: FAMOTIDINE 20 MG TABLET PO SCH (09:48)
[2022-01-28] MEDS: metoPROLOL SUCCINATE 25 MG TAB.SR.24H (FP) PO SCH (09:48)
[2022-01-28] MEDS: NICOTINE 10 MG CARTRIDGE (INHALER) IH PRN (09:49)
[2022-01-28] MEDS: SACUBITRIL/VALSARTAN 24 MG-26 MG TABLET PO SCH ×2 (09:49→21:25)
[2022-01-28] MEDS: PRENATAL VITAMINS W/ FOLIC ACID TABLET (FP) PO SCH (09:49)
[2022-01-28] MEDS: SERTRALINE HCL 50 MG TABLET (FP) PO SCH (09:49)
[2022-01-28] MEDS: ASPIRIN COATED 81 MG TABLET.EC PO SCH (09:49)
[2022-01-28] MEDS: NICOTINE 7 MG/24 HOURS TOPICAL PATCH TD SCH (09:49)
[2022-01-28] MEDS: METHYL SALICYLATE/MENTHOL OINT 30 GM TUBE TP SCH (09:50)
[2022-01-28] MEDS: IBUPROFEN 400 MG TABLET (FP) PO PRN (21:24)
[2022-01-28] MEDS: THIAMINE HCL 100 MG TABLET (FP) PO SCH (21:25)
[2022-01-28] MEDS: ATORVASTATIN CA 80 MG TABLET (FP) PO SCH (21:25)
[2022-01-28] MEDS: MIRTAZAPINE 15 MG TABLET (FP) PO SCH (21:25)
[2022-01-29] MEDS: FERROUS SO4 325 MG TABLET (FP) PO SCH ×2 (07:09→18:54)
[2022-01-29] MEDS: NICOTINE 7 MG/24 HOURS TOPICAL PATCH TD SCH (10:11)
[2022-01-29] MEDS: ASPIRIN COATED 81 MG TABLET.EC PO SCH (10:11)
[2022-01-29] MEDS: SACUBITRIL/VALSARTAN 24 MG-26 MG TABLET PO SCH ×2 (10:11→21:21)
[2022-01-29] MEDS: METHYL SALICYLATE/MENTHOL OINT 30 GM TUBE TP SCH (10:11)
[2022-01-29] MEDS: PRENATAL VITAMINS W/ FOLIC ACID TABLET (FP) PO SCH (10:11)
[2022-01-29] MEDS: FAMOTIDINE 20 MG TABLET PO SCH (10:11)
[2022-01-29] MEDS: metoPROLOL SUCCINATE 25 MG TAB.SR.24H (FP) PO SCH (10:12)
[2022-01-29] MEDS: SERTRALINE HCL 50 MG TABLET (FP) PO SCH (10:12)
[2022-01-29] MEDS: THIAMINE HCL 100 MG TABLET (FP) PO SCH (21:19)
[2022-01-29] MEDS: ATORVASTATIN CA 80 MG TABLET (FP) PO SCH (21:20)
[2022-01-29] MEDS: IBUPROFEN 400 MG TABLET (FP) PO PRN (21:20)
[2022-01-29] MEDS: MIRTAZAPINE 15 MG TABLET (FP) PO SCH (21:20)
[2022-01-29] MEDS: hydrOXYzine PAMOATE 25 MG CAPSULE (FP) PO PRN (21:20)
[2022-01-30] MEDS: FERROUS SO4 325 MG TABLET (FP) PO SCH ×2 (07:48→17:52)
[2022-01-30] MEDS: ALBUTEROL SO4 HFA INHALER IH PRN ×2 (09:39→17:52)
[2022-01-30] MEDS: METHYL SALICYLATE/MENTHOL OINT 30 GM TUBE TP SCH (09:40)
[2022-01-30] MEDS: SACUBITRIL/VALSARTAN 24 MG-26 MG TABLET PO SCH ×2 (09:40→21:20)
[2022-01-30] MEDS: ASPIRIN COATED 81 MG TABLET.EC PO SCH (09:41)
[2022-01-30] MEDS: SERTRALINE HCL 50 MG TABLET (FP) PO SCH (09:41)
[2022-01-30] MEDS: NICOTINE 7 MG/24 HOURS TOPICAL PATCH TD SCH (09:41)
[2022-01-30] MEDS: FAMOTIDINE 20 MG TABLET PO SCH (09:41)
[2022-01-30] MEDS: metoPROLOL SUCCINATE 25 MG TAB.SR.24H (FP) PO SCH (09:41)
[2022-01-30] MEDS: PRENATAL VITAMINS W/ FOLIC ACID TABLET (FP) PO SCH (09:42)
[2022-01-30] MEDS: MIRTAZAPINE 15 MG TABLET (FP) PO SCH (21:20)
[2022-01-30] MEDS: ATORVASTATIN CA 80 MG TABLET (FP) PO SCH (21:20)
[2022-01-30] MEDS: THIAMINE HCL 100 MG TABLET (FP) PO SCH (21:20)
[2022-01-30] MEDS: IBUPROFEN 400 MG TABLET (FP) PO PRN (21:21)
[2022-01-31] MEDS: FERROUS SO4 325 MG TABLET (FP) PO SCH ×2 (07:03→17:55)
[2022-01-31] MEDS: FAMOTIDINE 20 MG TABLET PO SCH (09:48)
[2022-01-31] MEDS: SERTRALINE HCL 50 MG TABLET (FP) PO SCH (09:48)
[2022-01-31] MEDS: metoPROLOL SUCCINATE 25 MG TAB.SR.24H (FP) PO SCH (09:48)
[2022-01-31] MEDS: METHYL SALICYLATE/MENTHOL OINT 30 GM TUBE TP SCH (09:48)
[2022-01-31] MEDS: ASPIRIN COATED 81 MG TABLET.EC PO SCH (09:48)
[2022-01-31] MEDS: SACUBITRIL/VALSARTAN 24 MG-26 MG TABLET PO SCH ×2 (09:49→21:29)
[2022-01-31] MEDS: PRENATAL VITAMINS W/ FOLIC ACID TABLET (FP) PO SCH (09:49)
[2022-01-31] MEDS: NICOTINE 7 MG/24 HOURS TOPICAL PATCH TD SCH (09:49)
[2022-01-31] MEDS: IBUPROFEN 400 MG TABLET (FP) PO PRN (21:27)
[2022-01-31] MEDS: MIRTAZAPINE 15 MG TABLET (FP) PO SCH (21:27)
[2022-01-31] MEDS: ATORVASTATIN CA 80 MG TABLET (FP) PO SCH (21:27)
[2022-01-31] MEDS: THIAMINE HCL 100 MG TABLET (FP) PO SCH (21:27)
[2022-02-01] MEDS: FERROUS SO4 325 MG TABLET (FP) PO SCH ×2 (08:42→18:00)
[2022-02-01] MEDS: METHYL SALICYLATE/MENTHOL OINT 30 GM TUBE TP SCH (09:34)
[2022-02-01] MEDS: ASPIRIN COATED 81 MG TABLET.EC PO SCH (09:35)
[2022-02-01] MEDS: FAMOTIDINE 20 MG TABLET PO SCH (09:35)
[2022-02-01] MEDS: SERTRALINE HCL 50 MG TABLET (FP) PO SCH (09:35)
[2022-02-01] MEDS: PRENATAL VITAMINS W/ FOLIC ACID TABLET (FP) PO SCH (09:35)
[2022-02-01] MEDS: metoPROLOL SUCCINATE 25 MG TAB.SR.24H (FP) PO SCH (09:37)
[2022-02-01] MEDS: ALBUTEROL SO4 HFA INHALER IH PRN (09:37)
[2022-02-01] MEDS: SACUBITRIL/VALSARTAN 24 MG-26 MG TABLET PO SCH ×2 (09:38→21:20)
[2022-02-01] MEDS: NICOTINE 7 MG/24 HOURS TOPICAL PATCH TD SCH (09:38)
[2022-02-01] MEDS: MIRTAZAPINE 15 MG TABLET (FP) PO SCH (21:20)
[2022-02-01] MEDS: THIAMINE HCL 100 MG TABLET (FP) PO SCH (21:20)
[2022-02-01] MEDS: ATORVASTATIN CA 80 MG TABLET (FP) PO SCH (21:20)
[2022-02-01] MEDS: IBUPROFEN 400 MG TABLET (FP) PO PRN (21:21)
[2022-02-02] MEDS: FERROUS SO4 325 MG TABLET (FP) PO SCH ×2 (07:56→17:45)
[2022-02-02] MEDS: NICOTINE 10 MG CARTRIDGE (INHALER) IH PRN (09:51)
[2022-02-02] MEDS: ASPIRIN COATED 81 MG TABLET.EC PO SCH (09:51)
[2022-02-02] MEDS: FAMOTIDINE 20 MG TABLET PO SCH (09:52)
[2022-02-02] MEDS: SACUBITRIL/VALSARTAN 24 MG-26 MG TABLET PO SCH ×2 (09:52→21:09)
[2022-02-02] MEDS: metoPROLOL SUCCINATE 25 MG TAB.SR.24H (FP) PO SCH (09:52)
[2022-02-02] MEDS: PRENATAL VITAMINS W/ FOLIC ACID TABLET (FP) PO SCH (09:52)
[2022-02-02] MEDS: SERTRALINE HCL 50 MG TABLET (FP) PO SCH (09:52)
[2022-02-02] MEDS: ALBUTEROL SO4 HFA INHALER IH PRN (09:53)
[2022-02-02] MEDS: METHYL SALICYLATE/MENTHOL OINT 30 GM TUBE TP SCH (09:54)
[2022-02-02] MEDS: NICOTINE 7 MG/24 HOURS TOPICAL PATCH TD SCH (09:54)
[2022-02-02] MEDS: ATORVASTATIN CA 80 MG TABLET (FP) PO SCH (21:08)
[2022-02-02] MEDS: hydrOXYzine PAMOATE 25 MG CAPSULE (FP) PO PRN (21:09)
[2022-02-02] MEDS: THIAMINE HCL 100 MG TABLET (FP) PO SCH (21:09)
[2022-02-02] MEDS: MIRTAZAPINE 15 MG TABLET (FP) PO SCH (21:09)
[2022-02-03] MEDS: FERROUS SO4 325 MG TABLET (FP) PO SCH ×2 (07:55→17:55)
[2022-02-03] MEDS: ASPIRIN COATED 81 MG TABLET.EC PO SCH (10:08)
[2022-02-03] MEDS: METHYL SALICYLATE/MENTHOL OINT 30 GM TUBE TP SCH (10:08)
[2022-02-03] MEDS: FAMOTIDINE 20 MG TABLET PO SCH (10:09)
[2022-02-03] MEDS: metoPROLOL SUCCINATE 25 MG TAB.SR.24H (FP) PO SCH (10:09)
[2022-02-03] MEDS: PRENATAL VITAMINS W/ FOLIC ACID TABLET (FP) PO SCH (10:10)
[2022-02-03] MEDS: SERTRALINE HCL 50 MG TABLET (FP) PO SCH (10:10)
[2022-02-03] MEDS: ALBUTEROL SO4 HFA INHALER IH PRN (10:10)
[2022-02-03] MEDS: NICOTINE 7 MG/24 HOURS TOPICAL PATCH TD SCH (10:11)
[2022-02-03] MEDS: SACUBITRIL/VALSARTAN 24 MG-26 MG TABLET PO SCH ×2 (10:11→21:31)
[2022-02-03] MEDS: THIAMINE HCL 100 MG TABLET (FP) PO SCH (21:21)
[2022-02-03] MEDS: IBUPROFEN 400 MG TABLET (FP) PO PRN (21:21)
[2022-02-03] MEDS: MIRTAZAPINE 15 MG TABLET (FP) PO SCH (21:21)
[2022-02-03] MEDS: ATORVASTATIN CA 80 MG TABLET (FP) PO SCH (21:21)
[2022-02-04] MEDS: FERROUS SO4 325 MG TABLET (FP) PO SCH ×2 (07:08→17:59)
[2022-02-04] MEDS: ALBUTEROL SO4 HFA INHALER IH PRN ×2 (09:35→13:02)
[2022-02-04] MEDS: FAMOTIDINE 20 MG TABLET PO SCH (09:36)
[2022-02-04] MEDS: SERTRALINE HCL 50 MG TABLET (FP) PO SCH (09:36)
[2022-02-04] MEDS: NICOTINE 7 MG/24 HOURS TOPICAL PATCH TD SCH (09:36)
[2022-02-04] MEDS: SACUBITRIL/VALSARTAN 24 MG-26 MG TABLET PO SCH ×2 (09:36→21:31)
[2022-02-04] MEDS: PRENATAL VITAMINS W/ FOLIC ACID TABLET (FP) PO SCH (09:36)
[2022-02-04] MEDS: ASPIRIN COATED 81 MG TABLET.EC PO SCH (09:36)
[2022-02-04] MEDS: metoPROLOL SUCCINATE 25 MG TAB.SR.24H (FP) PO SCH (09:36)
[2022-02-04] MEDS: METHYL SALICYLATE/MENTHOL OINT 30 GM TUBE TP SCH (09:36)
[2022-02-04] MEDS: THIAMINE HCL 100 MG TABLET (FP) PO SCH (21:29)
[2022-02-04] MEDS: MIRTAZAPINE 15 MG TABLET (FP) PO SCH (21:30)
[2022-02-04] MEDS: IBUPROFEN 400 MG TABLET (FP) PO PRN (21:30)
[2022-02-04] MEDS: ATORVASTATIN CA 80 MG TABLET (FP) PO SCH (21:30)
[2022-02-05] MEDS: FERROUS SO4 325 MG TABLET (FP) PO SCH ×2 (07:09→16:52)
[2022-02-05] MEDS: ALBUTEROL SO4 HFA INHALER IH PRN (08:15)
[2022-02-05] MEDS: METHYL SALICYLATE/MENTHOL OINT 30 GM TUBE TP SCH (09:35)
[2022-02-05] MEDS: SACUBITRIL/VALSARTAN 24 MG-26 MG TABLET PO SCH ×2 (09:35→21:07)
[2022-02-05] MEDS: ASPIRIN COATED 81 MG TABLET.EC PO SCH (09:35)
[2022-02-05] MEDS: FAMOTIDINE 20 MG TABLET PO SCH (09:36)
[2022-02-05] MEDS: metoPROLOL SUCCINATE 25 MG TAB.SR.24H (FP) PO SCH (09:36)
[2022-02-05] MEDS: NICOTINE 7 MG/24 HOURS TOPICAL PATCH TD SCH (09:36)
[2022-02-05] MEDS: SERTRALINE HCL 50 MG TABLET (FP) PO SCH (09:37)
[2022-02-05] MEDS: PRENATAL VITAMINS W/ FOLIC ACID TABLET (FP) PO SCH (09:37)
[2022-02-05] MEDS: IBUPROFEN 400 MG TABLET (FP) PO PRN (21:06)
[2022-02-05] MEDS: THIAMINE HCL 100 MG TABLET (FP) PO SCH (21:06)
[2022-02-05] MEDS: ATORVASTATIN CA 80 MG TABLET (FP) PO SCH (21:06)
[2022-02-05] MEDS: MIRTAZAPINE 15 MG TABLET (FP) PO SCH (21:06)
[2022-02-06] MEDS: FERROUS SO4 325 MG TABLET (FP) PO SCH ×2 (07:12→17:45)
[2022-02-06] MEDS: METHYL SALICYLATE/MENTHOL OINT 30 GM TUBE TP SCH (09:48)
[2022-02-06] MEDS: ASPIRIN COATED 81 MG TABLET.EC PO SCH (09:48)
[2022-02-06] MEDS: SACUBITRIL/VALSARTAN 24 MG-26 MG TABLET PO SCH ×2 (09:48→21:27)
[2022-02-06] MEDS: NICOTINE 7 MG/24 HOURS TOPICAL PATCH TD SCH (09:49)
[2022-02-06] MEDS: FAMOTIDINE 20 MG TABLET PO SCH (09:49)
[2022-02-06] MEDS: SERTRALINE HCL 50 MG TABLET (FP) PO SCH (09:49)
[2022-02-06] MEDS: metoPROLOL SUCCINATE 25 MG TAB.SR.24H (FP) PO SCH (09:49)
[2022-02-06] MEDS: PRENATAL VITAMINS W/ FOLIC ACID TABLET (FP) PO SCH (09:49)
[2022-02-06] MEDS: ALBUTEROL SO4 HFA INHALER IH PRN (11:01)
[2022-02-06] MEDS: ATORVASTATIN CA 80 MG TABLET (FP) PO SCH (21:21)
[2022-02-06] MEDS: IBUPROFEN 400 MG TABLET (FP) PO PRN (21:21)
[2022-02-06] MEDS: MIRTAZAPINE 15 MG TABLET (FP) PO SCH (21:21)
[2022-02-06] MEDS: THIAMINE HCL 100 MG TABLET (FP) PO SCH (21:27)
[2022-02-07] MEDS: FERROUS SO4 325 MG TABLET (FP) PO SCH ×2 (07:12→17:35)
[2022-02-07] MEDS: ALBUTEROL SO4 HFA INHALER IH PRN ×2 (09:57→21:04)
[2022-02-07] MEDS: ASPIRIN COATED 81 MG TABLET.EC PO SCH (09:57)
[2022-02-07] MEDS: FAMOTIDINE 20 MG TABLET PO SCH (09:57)
[2022-02-07] MEDS: NICOTINE 10 MG CARTRIDGE (INHALER) IH PRN (09:57)
[2022-02-07] MEDS: NICOTINE 7 MG/24 HOURS TOPICAL PATCH TD SCH (09:58)
[2022-02-07] MEDS: SERTRALINE HCL 50 MG TABLET (FP) PO SCH (09:58)
[2022-02-07] MEDS: metoPROLOL SUCCINATE 25 MG TAB.SR.24H (FP) PO SCH (09:58)
[2022-02-07] MEDS: PRENATAL VITAMINS W/ FOLIC ACID TABLET (FP) PO SCH (09:58)
[2022-02-07] MEDS: SACUBITRIL/VALSARTAN 24 MG-26 MG TABLET PO SCH ×2 (09:58→21:04)
[2022-02-07] MEDS: METHYL SALICYLATE/MENTHOL OINT 30 GM TUBE TP SCH (09:58)
[2022-02-07] MEDS: MIRTAZAPINE 15 MG TABLET (FP) PO SCH (21:04)
[2022-02-07] MEDS: hydrOXYzine PAMOATE 25 MG CAPSULE (FP) PO PRN (21:04)
[2022-02-07] MEDS: THIAMINE HCL 100 MG TABLET (FP) PO SCH (21:04)
[2022-02-07] MEDS: ATORVASTATIN CA 80 MG TABLET (FP) PO SCH (21:04)
[2022-02-07] MEDS: IBUPROFEN 400 MG TABLET (FP) PO PRN (21:05)
[2022-02-08] MEDS: FERROUS SO4 325 MG TABLET (FP) PO SCH ×2 (07:21→17:50)
[2022-02-08] MEDS: ASPIRIN COATED 81 MG TABLET.EC PO SCH (09:41)
[2022-02-08] MEDS: SACUBITRIL/VALSARTAN 24 MG-26 MG TABLET PO SCH ×2 (09:41→21:29)
[2022-02-08] MEDS: METHYL SALICYLATE/MENTHOL OINT 30 GM TUBE TP SCH (09:41)
[2022-02-08] MEDS: NICOTINE 7 MG/24 HOURS TOPICAL PATCH TD SCH (09:42)
[2022-02-08] MEDS: PRENATAL VITAMINS W/ FOLIC ACID TABLET (FP) PO SCH (09:42)
[2022-02-08] MEDS: SERTRALINE HCL 50 MG TABLET (FP) PO SCH (09:42)
[2022-02-08] MEDS: FAMOTIDINE 20 MG TABLET PO SCH (09:42)
[2022-02-08] MEDS: metoPROLOL SUCCINATE 25 MG TAB.SR.24H (FP) PO SCH (09:42)
[2022-02-08] MEDS: ALBUTEROL SO4 HFA INHALER IH PRN (09:43)
[2022-02-08] MEDS: ATORVASTATIN CA 80 MG TABLET (FP) PO SCH (21:28)
[2022-02-08] MEDS: THIAMINE HCL 100 MG TABLET (FP) PO SCH (21:28)
[2022-02-08] MEDS: MIRTAZAPINE 15 MG TABLET (FP) PO SCH (21:28)
[2022-02-08] MEDS: IBUPROFEN 400 MG TABLET (FP) PO PRN (21:28)
[2022-02-09] MEDS: FERROUS SO4 325 MG TABLET (FP) PO SCH ×2 (07:49→16:55)
[2022-02-09] MEDS: ASPIRIN COATED 81 MG TABLET.EC PO SCH (09:24)
[2022-02-09] MEDS: ALBUTEROL SO4 HFA INHALER IH PRN (09:24)
[2022-02-09] MEDS: SERTRALINE HCL 50 MG TABLET (FP) PO SCH (09:24)
[2022-02-09] MEDS: PRENATAL VITAMINS W/ FOLIC ACID TABLET (FP) PO SCH (09:24)
[2022-02-09] MEDS: metoPROLOL SUCCINATE 25 MG TAB.SR.24H (FP) PO SCH (09:25)
[2022-02-09] MEDS: NICOTINE 7 MG/24 HOURS TOPICAL PATCH TD SCH (09:25)
[2022-02-09] MEDS: FAMOTIDINE 20 MG TABLET PO SCH (09:27)
[2022-02-09] MEDS: hydrOXYzine PAMOATE 25 MG CAPSULE (FP) PO PRN (09:27)
[2022-02-09] MEDS: METHYL SALICYLATE/MENTHOL OINT 30 GM TUBE TP SCH (09:28)
[2022-02-09] MEDS: SACUBITRIL/VALSARTAN 24 MG-26 MG TABLET PO SCH ×2 (09:28→21:11)
[2022-02-09] MEDS: THIAMINE HCL 100 MG TABLET (FP) PO SCH (21:10)
[2022-02-09] MEDS: IBUPROFEN 400 MG TABLET (FP) PO PRN (21:10)
[2022-02-09] MEDS: ATORVASTATIN CA 80 MG TABLET (FP) PO SCH (21:10)
[2022-02-09] MEDS: MIRTAZAPINE 15 MG TABLET (FP) PO SCH (21:10)
[2022-02-10] MEDS: FERROUS SO4 325 MG TABLET (FP) PO SCH ×2 (07:15→17:38)
[2022-02-10] MEDS: PRENATAL VITAMINS W/ FOLIC ACID TABLET (FP) PO SCH (09:47)
[2022-02-10] MEDS: metoPROLOL SUCCINATE 25 MG TAB.SR.24H (FP) PO SCH (09:47)
[2022-02-10] MEDS: SACUBITRIL/VALSARTAN 24 MG-26 MG TABLET PO SCH ×2 (09:47→21:33)
[2022-02-10] MEDS: ASPIRIN COATED 81 MG TABLET.EC PO SCH (09:47)
[2022-02-10] MEDS: SERTRALINE HCL 50 MG TABLET (FP) PO SCH (09:47)
[2022-02-10] MEDS: NICOTINE 7 MG/24 HOURS TOPICAL PATCH TD SCH (09:48)
[2022-02-10] MEDS: FAMOTIDINE 20 MG TABLET PO SCH (09:48)
[2022-02-10] MEDS: METHYL SALICYLATE/MENTHOL OINT 30 GM TUBE TP SCH (09:48)
[2022-02-10] MEDS: ATORVASTATIN CA 80 MG TABLET (FP) PO SCH (21:33)
[2022-02-10] MEDS: IBUPROFEN 400 MG TABLET (FP) PO PRN (21:33)
[2022-02-10] MEDS: MIRTAZAPINE 15 MG TABLET (FP) PO SCH (21:34)
[2022-02-10] MEDS: THIAMINE HCL 100 MG TABLET (FP) PO SCH (21:36)
[2022-02-11] MEDS: FERROUS SO4 325 MG TABLET (FP) PO SCH ×2 (07:11→17:36)
[2022-02-11] MEDS: SERTRALINE HCL 50 MG TABLET (FP) PO SCH (10:06)
[2022-02-11] MEDS: ASPIRIN COATED 81 MG TABLET.EC PO SCH (10:06)
[2022-02-11] MEDS: metoPROLOL SUCCINATE 25 MG TAB.SR.24H (FP) PO SCH (10:06)
[2022-02-11] MEDS: ALBUTEROL SO4 HFA INHALER IH PRN ×2 (10:06→21:45)
[2022-02-11] MEDS: PRENATAL VITAMINS W/ FOLIC ACID TABLET (FP) PO SCH (10:07)
[2022-02-11] MEDS: NICOTINE 7 MG/24 HOURS TOPICAL PATCH TD SCH (10:07)
[2022-02-11] MEDS: FAMOTIDINE 20 MG TABLET PO SCH (10:07)
[2022-02-11] MEDS: METHYL SALICYLATE/MENTHOL OINT 30 GM TUBE TP SCH (10:07)
[2022-02-11] MEDS: SACUBITRIL/VALSARTAN 24 MG-26 MG TABLET PO SCH ×2 (10:07→21:45)
[2022-02-11] MEDS: NICOTINE 10 MG CARTRIDGE (INHALER) IH PRN (10:08)
[2022-02-11] MEDS: THIAMINE HCL 100 MG TABLET (FP) PO SCH (21:45)
[2022-02-11] MEDS: MIRTAZAPINE 15 MG TABLET (FP) PO SCH (21:45)
[2022-02-11] MEDS: ATORVASTATIN CA 80 MG TABLET (FP) PO SCH (21:45)
[2022-02-12 06:32] VITALS: RESP 20; TEMP 97.5
[2022-02-12] MEDS: FERROUS SO4 325 MG TABLET (FP) PO SCH (07:11)
[2022-02-12] MEDS: METHYL SALICYLATE/MENTHOL OINT 30 GM TUBE TP SCH (09:04)
[2022-02-12] MEDS: ASPIRIN COATED 81 MG TABLET.EC PO SCH (09:04)
[2022-02-12] MEDS: SACUBITRIL/VALSARTAN 24 MG-26 MG TABLET PO SCH (09:04)
[2022-02-12] MEDS: FAMOTIDINE 20 MG TABLET PO SCH (09:04)
[2022-02-12] MEDS: NICOTINE 7 MG/24 HOURS TOPICAL PATCH TD SCH (09:04)
[2022-02-12] MEDS: metoPROLOL SUCCINATE 25 MG TAB.SR.24H (FP) PO SCH (09:05)
[2022-02-12] MEDS: PRENATAL VITAMINS W/ FOLIC ACID TABLET (FP) PO SCH (09:05)
[2022-02-12] MEDS: SERTRALINE HCL 50 MG TABLET (FP) PO SCH (09:05)
[2022-02-12 09:09] VITALS: BP 135/78; PULSE 80
== END 2022-02-12 09:16 | disposition home or self-care (01) | DRG 772 ==
LOC: YASAS 15:07 → Y3E 15:26
PROVIDERS: ADMIT Allergy & Immunology; ATTEND Family Medicine
PROC: HZ42ZZZ Group Counseling for Substance Abuse Treatment, Cognitive-Behavioral (ICD-10-PCS; principal; 2022-01-16)
DX: F11.20 Opioid dependence, uncomplicated (principal); F16.20 Hallucinogen dependence, uncomplicated; F10.20 Alcohol dependence, uncomplicated; F17.210 Nicotine dependence, cigarettes, uncomplicated; F19.24 Other psychoactive substance dependence with psychoactive substance-induced mood disorder; F32.9 Major depressive disorder, single episode, unspecified; F41.8 Other specified anxiety disorders; I11.0 Hypertensive heart disease with heart failure; I50.9 Heart failure, unspecified; G47.00 Insomnia, unspecified; Z91.19 Patient's noncompliance with other medical treatment and regimen
CPT/HCPCS: 36415; 80053; 81003; 85027; 86780; 86803

== ENCOUNTER 2023-02-17 00:42 | Inpatient (IN) | payer OTHER ==
[2023-02-17] MEDS ORDERED: SODIUM CHLORIDE 1,000 ML IV STA (00:55)
[2023-02-17 01:30] LABS: HEMATOCRIT 34.4 % (35.4-49); HEMOGLOBIN 12.2 GM/dL (11.7-16.9); MCH 29.3 pg (25.7-33.7); MCHC 35.4 g/dl (32.0-35.9); MEAN CELL VOLUME 82.6 fl (80-96); PLATELET COUNT 294 10^3/uL (134-434); RBC 4.17 M/mm3 (4.00-5.60); WHITE BLOOD COUNT 14.8 K/mm3 (4.0-10.0)
[2023-02-17 01:58] LABS: CALCIUM 8.8 mg/dL (8.5-10.1)
[2023-02-17 01:59] LABS: MAGNESIUM 2.7 mg/dL (1.8-2.4)
[2023-02-17 02:02] LABS: CREATININE 2.5 mg/dL (0.55-1.3)
[2023-02-17 02:04] LABS: BILIRUBIN,TOTAL 2.6 mg/dL (0.2-1); TOT PROT 7.6 g/dl (6.4-8.2)
[2023-02-17 02:27] LABS: EPI CELLS 25 /uL (0-25.1); HYALINE CASTS 11 /uL (0-3.1); PH,URINE 5.5 (5.0-8.0); URINE APPEARANCE CLEAR; URINE BACTERIA 14 /uL (0-1359); URINE BILIRUBIN 1+ (NEGATIVE); URINE COLOR DK YELLOW; URINE GLUCOSE (UA) TRACE (NEGATIVE); URINE KETONE TRACE (NEGATIVE); URINE LEUK ESTERASE TRACE (NEGATIVE); URINE NITRITE NEGATIVE (NEGATIVE); URINE PROTEIN 2+ (NEGATIVE); URINE RBC 15 /uL (0-23.9); URINE WBC 71 /uL (0-25.8)
[2023-02-17 02:31] LABS: METHADONE, UR NEGATIVE (NEGATIVE); URINE AMPHETAMINES NEGATIVE (NEGATIVE)
[2023-02-17 02:32] LABS: COCAINE, UR POSITIVE (NEGATIVE); OPIATES, URI POSITIVE (NEGATIVE); PHENCYCLIDINE,URINE POSITIVE (NEGATIVE); URINE BARBITURATES NEGATIVE (NEGATIVE); URINE BENZODIAZEPINES POSITIVE (NEGATIVE)
[2023-02-17 02:33] LABS: ANISOCYTOSIS 2+; MACROCYTOSIS 0; OVALOCYTE 2+
[2023-02-17 03:42] LABS: HEMATOCRIT 29.1 % (35.4-49); HEMOGLOBIN 10.5 GM/dL (11.7-16.9); MCH 29.1 pg (25.7-33.7); MEAN CELL VOLUME 80.9 fl (80-96); MEAN PLT VOLUME 7.4 fl (7.5-11.1); PLATELET COUNT 237 10^3/uL (134-434); RBC 3.59 M/mm3 (4.00-5.60); RDW 20.1 % (11.9-15.9); WHITE BLOOD COUNT 13.4 K/mm3 (4.0-10.0)
[2023-02-17] MEDS ORDERED: ALBUTEROL SO4 HFA INHALER IH PRN (06:05)
[2023-02-17 06:58] LABS: ANISOCYTOSIS 2+; MACROCYTOSIS 0; OVALOCYTE 2+
[2023-02-17 07:48] VITALS: TEMP 98.1; BMI 29.0
[2023-02-17] MEDS ORDERED: FERROUS SO4 325 MG TABLET (FP) PO SCH (10:00)
[2023-02-17] MEDS ORDERED: ASPIRIN COATED 81 MG TABLET.EC PO SCH (10:00)
[2023-02-17] MEDS ORDERED: CEFTRIAXONE 1 GM in DEXTROSE 5%-WATER - 50 ML IVPB SCH (10:00)
[2023-02-17] MEDS ORDERED: SACUBITRIL/VALSARTAN 24 MG-26 MG TABLET PO SCH (10:00)
[2023-02-17] MEDS ORDERED: SERTRALINE HCL 50 MG TABLET (FP) PO SCH (10:00)
[2023-02-17 12:45] LABS: POTASSIUM 3.4 mmol/L (3.5-5.1)
[2023-02-17 12:49] LABS: CALCIUM 7.7 mg/dL (8.5-10.1)
[2023-02-17 12:50] LABS: ALBUMIN 3.2 g/dl (3.4-5.0); BLOOD UREA NITROGEN 28.3 mg/dL (7-18)
[2023-02-17 12:53] LABS: CREATININE 1.7 mg/dL (0.55-1.3)
[2023-02-17 12:54] LABS: BILIRUBIN,TOTAL 1.6 mg/dL (0.2-1); TOT PROT 6.3 g/dl (6.4-8.2)
[2023-02-17] MEDS ORDERED: HEPARIN NA (PORCINE) 5,000 UNITS/ML 1ML VIAL SQ SCH (14:00)
[2023-02-17] MEDS ORDERED: POTASSIUM CHLORIDE ORAL LIQUID 20 MEQ/15 ML PO ONE (14:09)
[2023-02-17 15:50] VITALS: BP 130/72; PULSE 68; RESP 18
[2023-02-17 16:09] LABS: BASO % 0.7 % (0-2.0); HEMATOCRIT 28.9 % (35.4-49); HEMOGLOBIN 10.3 GM/dL (11.7-16.9); LYMPH % 16.1 % (8-40); MCH 28.9 pg (25.7-33.7); MCHC 35.6 g/dl (32.0-35.9); MEAN CELL VOLUME 81.2 fl (80-96); MEAN PLT VOLUME 7.6 fl (7.5-11.1); MONO % 9.2 % (3.8-10.2); PLATELET COUNT 242 10^3/uL (134-434); RBC 3.56 M/mm3 (4.00-5.60); RDW 20.2 % (11.9-15.9); WHITE BLOOD COUNT 11.6 K/mm3 (4.0-10.0)
[2023-02-17 16:33] LABS: MAGNESIUM 2.6 mg/dL (1.8-2.4)
[2023-02-17] MEDS ORDERED: ATORVASTATIN CA 80 MG TABLET (FP) PO SCH (22:00)
[2023-02-17] MEDS ORDERED: SENNOSIDES 8.8 MG/5 ML SYRUP PO SCH (22:00)
[2023-02-17] MEDS ORDERED: MIRTAZAPINE 15 MG TABLET (FP) PO SCH (22:00)
== END 2023-02-17 16:43 | disposition home or self-care (01) | DRG 774 ==
LOC: JER 00:42 → JERBED 02:27 → OBSVTOIN 06:20 → J4W 07:27
PROVIDERS: ADMIT Internal Medicine; ATTEND Internal Medicine
DX: F19.120 Other psychoactive substance abuse with intoxication, uncomplicated (principal); F13.129 Sedative, hypnotic or anxiolytic abuse with intoxication, unspecified; I11.0 Hypertensive heart disease with heart failure; I50.22 Chronic systolic (congestive) heart failure; N17.9 Acute kidney failure, unspecified; J45.909 Unspecified asthma, uncomplicated; R79.89 Other specified abnormal findings of blood chemistry; F32.A Depression, unspecified; D72.829 Elevated white blood cell count, unspecified; D64.9 Anemia, unspecified; F12.10 Cannabis abuse, uncomplicated; F16.10 Hallucinogen abuse, uncomplicated; R41.82 Altered mental status, unspecified; E87.6 Hypokalemia; B19.10 Unspecified viral hepatitis B without hepatic coma; F14.10 Cocaine abuse, uncomplicated
CPT/HCPCS: 36415; 71046-TC-FY; 76700-TC; 80053; 80061; 80307; 81003; 82550; 82553; 82570; 83540; 83735; 84100; 84132; 84156; 84443; 84484; 85025; 85045; 86704; 86803; 87040; 87086; 87340; 87517; 93005; 93010; 93306-TC; 99285-25; G0378; J1644

== ENCOUNTER 2023-04-02 13:18 | Inpatient (IN) | payer OTHER ==
[2023-04-02 13:35] VITALS: BMI 29.8
[2023-04-02] MEDS ORDERED: ACETAMINOPHEN 325 MG TABLET (FP) PO PRN (14:14)
[2023-04-02] MEDS ORDERED: DICYCLOMINE HCL 10 MG CAPSULE PO PRN (14:14)
[2023-04-02] MEDS ORDERED: NICOTINE POLACRILEX 2 MG GUM BUC PRN (14:14)
[2023-04-02] MEDS ORDERED: LOPERAMIDE HCL 2 MG CAPSULE PO PRN (14:14)
[2023-04-02] MEDS ORDERED: guaiFENesin 600 MG TABLET.ER (FP) PO PRN (14:14)
[2023-04-02] MEDS ORDERED: MAGNESIUM HYDROX 2400MG/30ML ORAL SUSPENSION 30 ML CUP PO PRN (14:14)
[2023-04-02] MEDS ORDERED: BENZONATATE 200 MG CAPSULE PO PRN (14:14)
[2023-04-02] MEDS ORDERED: NALOXONE HCL 0.4 MG/ML VIAL IM PRN (14:14)
[2023-04-02] MEDS ORDERED: MAG HYDROX/AL HYDROX/SIMETH 30 ML UNIT-DOSE CUP PO PRN (14:14)
[2023-04-02] MEDS ORDERED: P-EPHED 60MG/TRIPROLIDI 2.5MG TABLET PO PRN (14:14)
[2023-04-02] MEDS ORDERED: IBUPROFEN 400 MG TABLET (FP) PO PRN (14:14)
[2023-04-02] MEDS ORDERED: BISMUTH SUBSALICYLATE 524 MG/30 ML PO PRN (14:14)
[2023-04-02] MEDS ORDERED: POLYETHYLENE GLYCOL (HEALTHYLAX) 3350 17 GM PACKET PO PRN (14:14)
[2023-04-02] MEDS ORDERED: NALOXONE HCL (KLOXXADO) 8 MG SPRAY NS PRN (14:14)
[2023-04-02] MEDS ORDERED: BENZOCAINE/MENTHOL (CHLORASEPTIC ) LOZENGE MM PRN (14:14)
[2023-04-02] MEDS ORDERED: IBUPROFEN 600 MG TABLET (FP) PO PRN (14:14)
[2023-04-02] MEDS ORDERED: ONDANSETRON *ODT* 4 MG TABLET SL PRN (14:14)
[2023-04-02] MEDS ORDERED: methaDONE HCL 10 MG TABLET (FOR DETOX USE ONLY) PO ONE (15:00)
[2023-04-02] MEDS ORDERED: methaDONE HCL 10 MG TABLET (FOR DETOX USE ONLY) ONE (15:07)
[2023-04-02] MEDS: SERTRALINE HCL 50 MG TABLET (FP) PO SCH (15:57)
[2023-04-02] MEDS: MIRTAZAPINE 15 MG TABLET (FP) PO SCH (22:12)
[2023-04-02] MEDS: THIAMINE HCL 100 MG TABLET (FP) PO SCH (22:12)
[2023-04-02] MEDS: MELATONIN 5 MG TABLETS PO SCH (22:30)
[2023-04-03] MEDS ORDERED: methaDONE HCL 10 MG TABLET (FOR DETOX USE ONLY) PO ONE (10:00)
[2023-04-03] MEDS: SERTRALINE HCL 50 MG TABLET (FP) PO SCH (10:40)
[2023-04-03] MEDS: METHOCARBAMOL 500 MG TABLET PO PRN (10:40)
[2023-04-03] MEDS: PRENATAL VITAMINS W/ FOLIC ACID TABLET (FP) PO SCH (10:40)
[2023-04-03] MEDS: cloNIDine HCL 0.1 MG TABLET PO PRN ×2 (10:41→22:29)
[2023-04-03 11:32] LABS: POTASSIUM 3.9 mmol/L (3.5-5.1)
[2023-04-03 11:33] LABS: CALCIUM 8.1 mg/dL (8.5-10.1)
[2023-04-03 11:42] LABS: BILIRUBIN,TOTAL 0.9 mg/dL (0.2-1)
[2023-04-03 11:48] LABS: HEMATOCRIT 33.4 % (35.4-49); MCH 29.4 pg (25.7-33.7); MEAN CELL VOLUME 81.6 fl (80-96); MEAN PLT VOLUME 7.8 fl (7.5-11.1); PLATELET COUNT 172 10^3/uL (134-434); RBC 4.09 M/mm3 (4.00-5.60); WHITE BLOOD COUNT 6.3 K/mm3 (4.0-10.0)
[2023-04-03] MEDS: MIRTAZAPINE 15 MG TABLET (FP) PO SCH (22:29)
[2023-04-03] MEDS: THIAMINE HCL 100 MG TABLET (FP) PO SCH (22:29)
[2023-04-03] MEDS: MELATONIN 5 MG TABLETS PO SCH (23:39)
[2023-04-04] MEDS: SERTRALINE HCL 50 MG TABLET (FP) PO SCH (09:58)
[2023-04-04] MEDS: METHOCARBAMOL 500 MG TABLET PO PRN (09:58)
[2023-04-04] MEDS: cloNIDine HCL 0.1 MG TABLET PO PRN (09:58)
[2023-04-04] MEDS: PRENATAL VITAMINS W/ FOLIC ACID TABLET (FP) PO SCH (09:58)
[2023-04-04] MEDS ORDERED: methaDONE HCL 10 MG TABLET (FOR DETOX USE ONLY) PO ONE (10:00)
[2023-04-04] MEDS: MELATONIN 5 MG TABLETS PO SCH (22:30)
[2023-04-04] MEDS: THIAMINE HCL 100 MG TABLET (FP) PO SCH (22:30)
[2023-04-04] MEDS: MIRTAZAPINE 15 MG TABLET (FP) PO SCH (22:30)
[2023-04-05] MEDS: PRENATAL VITAMINS W/ FOLIC ACID TABLET (FP) PO SCH (09:38)
[2023-04-05] MEDS: SERTRALINE HCL 50 MG TABLET (FP) PO SCH (09:38)
[2023-04-05] MEDS: METHOCARBAMOL 500 MG TABLET PO PRN (09:38)
[2023-04-05] MEDS ORDERED: methaDONE HCL 10 MG TABLET (FOR DETOX USE ONLY) PO ONE (10:00)
[2023-04-05] MEDS ORDERED: ALBUTEROL SO4 HFA INHALER IH PRN (15:18)
[2023-04-05] MEDS ORDERED: ATORVASTATIN CA 80 MG TABLET (FP) PO SCH (22:00)
[2023-04-05] MEDS: SACUBITRIL/VALSARTAN 24 MG-26 MG TABLET PO SCH (22:28)
[2023-04-05] MEDS: THIAMINE HCL 100 MG TABLET (FP) PO SCH (22:28)
[2023-04-05] MEDS: MIRTAZAPINE 15 MG TABLET (FP) PO SCH (22:29)
[2023-04-05] MEDS: MELATONIN 5 MG TABLETS PO SCH (22:29)
[2023-04-06 06:24] VITALS: PULSE 58
[2023-04-06 09:33] VITALS: BP 148/94; RESP 18; TEMP 97.9
[2023-04-06] MEDS: PRENATAL VITAMINS W/ FOLIC ACID TABLET (FP) PO SCH (10:16)
[2023-04-06] MEDS: SACUBITRIL/VALSARTAN 24 MG-26 MG TABLET PO SCH (10:16)
[2023-04-06] MEDS: SERTRALINE HCL 50 MG TABLET (FP) PO SCH (10:16)
== END 2023-04-06 11:58 | disposition home or self-care (01) | DRG 773 ==
LOC: YASAS 13:18 → Y6N 14:25
PROVIDERS: ADMIT Allergy & Immunology; ATTEND Surgery
PROC: HZ2ZZZZ Detoxification Services for Substance Abuse Treatment (ICD-10-PCS; principal; 2023-04-02)
DX: F11.23 Opioid dependence with withdrawal (principal); F14.20 Cocaine dependence, uncomplicated; F16.10 Hallucinogen abuse, uncomplicated; F17.210 Nicotine dependence, cigarettes, uncomplicated; F19.282 Other psychoactive substance dependence with psychoactive substance-induced sleep disorder; F19.24 Other psychoactive substance dependence with psychoactive substance-induced mood disorder; E78.5 Hyperlipidemia, unspecified; I11.0 Hypertensive heart disease with heart failure; I50.9 Heart failure, unspecified; M54.50 Low back pain, unspecified; G89.29 Other chronic pain
CPT/HCPCS: 36415; 80053; 85027; 86780; 87635; 87811; 93005; 93010